=== PATIENT | male | born 1945 | race Caucasian/White ===

== ENCOUNTER 2019-02-22 21:14 | Inpatient (IN) | payer MEDICARE ==
[~2019-02-22 21:14] MED LIST: Iopamidol-370 76% 500 ML 1 ML ONE
[2019-02-22 22:05] LABS: #Eosinphils 0.1 thou/uL (0.0-0.7); #Lymphocytes 1.8 thou/uL (1.20-3.40); #Monocytes 1.5 thou/uL (0.11-0.59); #Neutrophils 9.1 thou/uL (1.40-6.50); %Basophils 0.2 % (0.0-1.0); %Eosinophils 0.8 % (0.0-10.0); %Lymphocytes 14.6 % (21.0-51.0); %Monocytes 12.1 % (0.0-10.0); %Neutrophils 72.3 % (42.0-75.0); Mean Corpuscular HGB CONC 31.7 g/dL (32.0-36.0); Mean Corpuscular Hemoglobin 24.9 pg (27.0-31.0); Mean Corpuscular Volume 78.4 fL (78.0-98.0); Mean Platelet Volume 9.2 fL (7.4-10.4); Platelet Count 353 thou/uL (130-400); RBC Distribution Width 18.1 % (11.5-14.5); Red Blood Cell (RBC) Count 3.23 mill/uL (4.70-6.10); White Blood Cell (WBC) Count 12.6 thou/uL (4.8-10.8)
--- NOTE | 2019-02-22 22:06 | CT ---
CT head noncontrast HISTORY: Head injury. COMPARISON: 08/03/2013. FINDINGS: There is no evidence of acute intracranial hemorrhage or infarct. Old areas of infarct in t he left cerebellum and left frontal lobe. Scattered old lacunar infarcts also evident bilaterally. There is no mass effect or shift of midline structures. Ventricles are unremarkable. Air-fluid level in the right maxillary sinus. Postoperative changes of the left maxillary sinus partially visualized. Scalp injury over the right p arietal calvarium. IMPRESSION: Right parietal scalp swelling. Evidence of prominent chronic ischemic disease and old bilateral infarcts. No acute hemorrhage is brooks arent. Right maxillary sinusitis.
--- NOTE | 2019-02-22 22:09 | RAD ---
Chest one view HISTORY: Cough. Choking. FINDINGS: Cardiac silhouette is magnified by projection. Mild widespread interstitial coarsening. Med iastinum is midline. No confluent airspace consolidation or evidence of pneumothorax. patient monitor leads overlie the chest. IMPRESSION: No active cardiopulmonary abnormalities are demonstrated.
[2019-02-22 22:38] LABS: CKMB 1.9 ng/mL (0-6.6)
[2019-02-22 22:47] LABS: ALT (SGPT) 9 U/L (8-55); AST (SGOT) 17 U/L (5-34); Albumin 3.7 g/dL (3.4-4.8); Alkaline Phosphatase 70 U/L (40-110); Anion Gap 17 mmol/L (10-20); BUN (Urea Nitrogen) 16 mg/dL (8.4-25.7); Bilirubin, Total 0.2 mg/dL (0.2-1.2); Calc. Creatinine Clearance 0 mL/min (70-130); Calcium 8.6 mg/dL (7.8-10.44); Carbon Dioxide 22 mmol/L (23-31); Chloride 92 mmol/L (98-107); Estimated GFR-MDRD 63; Globulin 2.7 g/dL (2.4-3.5); Glucose 87 mg/dL (83-110); Potassium 3.3 mmol/L (3.5-5.1); Protein, Total 6.4 g/dL (5.8-8.1); Sodium 128 mmol/L (136-145)
[2019-02-23] MEDS ORDERED: Aspirin 325 MG TAB ONE (00:03)
[2019-02-23] MEDS ORDERED: levETIRAcetam In NaCl (Iso-Os) 1,000 MG in Premix Bag 1 BAG IVPB SCH (01:45)
[2019-02-23] MEDS ORDERED: Labetalol HCl 100 MG/20 ML VIAL SLOW IVP PRN (01:46)
[2019-02-23] MEDS ORDERED: Acetaminophen 325 MG TAB PO PRN (01:46)
[2019-02-23] MEDS ORDERED: Lorazepam 2 MG/ML VIAL SLOW IVP PRN (01:46)
[2019-02-23] MEDS ORDERED: Ondansetron ODT 4 MG TAB PO PRN (01:46)
[2019-02-23] MEDS ORDERED: PROVENTIL INHALER 6.7 G (200 INHALATIONS) INH PRN (02:00)
--- NOTE | 2019-02-23 02:00 | PDOC.FPRHP ---
- Allergies/Adverse Reactions Allergies Allergy/AdvReac Type Severity Reaction Status Date / Time morphine Allergy Verified 02/23/19 04:32 Penicillins Allergy Verified 02/23/19 04:32 - Home Medications Medication Instructions Recorded Confirmed Type Allopurinol 300 mg PO DAILY 08/01/13 02/23/19 History Amitriptyline HCl [Elavil] 25 mg PO DAILY 08/01/13 02/23/19 History Levothyroxine Sodium [Synthroid] 100 mcg PO DAILY 08/01/13 02/23/19 History Losartan Potassium [Cozaar] 100 mg PO DAILY 08/01/13 02/23/19 History Pregabalin [Lyrica] 150 mg PO TID 08/01/13 02/23/19 History Albuterol Sulfate [Albuterol 2 puff INH Q4H PRN 02/23/19 02/23/19 History Sulfate Hfa] Amlodipine [Norvasc] 5 mg PO HS 02/23/19 02/23/19 History Aspirin [Ecotrin Low Strength] 1 tab PO HS 02/23/19 02/23/19 History Clopidogrel Bisulfate [Clopidogrel] 75 mg PO HS 02/23/19 02/23/19 History Fluticasone Propionate [Flovent 4 spray INH BID 02/23/19 02/23/19 History HFA] Hydrochlorothiazide 50 mg PO DAILY 02/23/19 02/23/19 History PARoxetine HCl 30 mg PO DAILY 02/23/19 02/23/19 History Pantoprazole Sodium 1 tab PO DAILY 02/23/19 02/23/19 History Ranolazine [Ranolazine ER] 1,000 mg PO DAILY 02/23/19 02/23/19 History [place] 1,000 mg PO DAILY 02/23/19 02/23/19 History Umeclidinium Brm/Vilanterol Tr 1 inh IH DAILY 02/23/19 02/23/19 History [Anoro Ellipta] chlordiazePOXIDE HCl [Librium] 10 mg PO Q6HR PRN 02/23/19 02/23/19 History - History PMHx: PSHx: FHx: Social: - Vital signs BP: [] HR: [] RR: [] Tmax: [] Pox: []% on [] Wt: [] FMR H&P: Results - Labs Result Diagrams: 02/23/19 04:04 02/23/19 04:04 Lab results: WBC 12.6 thou/uL (4.8-10.8) H 02/22/19 21:58 Hgb 8.0 g/dL (14.0-18.0) L 02/22/19 21:58 Hct 25.3 % (42.0-52.0) L 02/22/19 21:58 MCV 78.4 fL (78.0-98.0) 02/22/19 21:58 Plt Count 353 thou/uL (130-400) 02/22/19 21:58 Neutrophils % 72.3 % (42.0-75.0) 02/22/19 21:58 Sodium 128 mmol/L (136-145) L 02/22/19 21:58 Potassium 3.3 mmol/L (3.5-5.1) L 02/22/19 21:58 Chloride 92 mmol/L (98-107) L 02/22/19 21:58 Carbon Dioxide 22 mmol/L (23-31) L 02/22/19 21:58 BUN 16 mg/dL (8.4-25.7) 02/22/19 21:58 Creatinine 1.15 mg/dL (0.7-1.3) 02/22/19 21:58 Glucose 87 mg/dL (83-110) 02/22/19 21:58 Calcium 8.6 mg/dL (7.8-10.44) 02/22/19 21:58 Total Bilirubin 0.2 mg/dL (0.2-1.2) 02/22/19 21:58 AST 17 U/L (5-34) 02/22/19 21:58 ALT 9 U/L (8-55) 02/22/19 21:58 Alkaline Phosphatase 70 U/L (40-110) 02/22/19 21:58 CK-MB (CK-2) 1.9 ng/mL (0-6.6) 02/22/19 21:58 Serum Total Protein 6.4 g/dL (5.8-8.1) 02/22/19 21:58 Albumin 3.7 g/dL (3.4-4.8) 02/22/19 21:58 FMR H&P: Upper Level - Plan Date/Time: 02/23/19 0152 PCP: INGRID HPI: This 74 yo M is being admitted after a seizure like episode happened earlier today. Girlfriend states he was sitting in his chair and went stiff and she could not get him to respond. She states this has been occurring 3-4 times a week since Dec 2017 and no one has given them a reason for these occurrences. She states that usually they last 3-4 minutes and then he comes out of it, sometimes he does wet himself. states it often occurs when he is chewing on ice, then he will start gagging, and then get stiff. She also states he has slurred speech which comes and goes. This time he did not come out of it and his lips started turning blue so she called EMS. Paramedics arrived and he was unresponsive so they brought him to the floor and they started bagging him. He came to when they were putting an IO in place. He denies incontinence, tongue/cheek biting with this episode. No weakness on one side or the other. Girlfriend states he has been getting weaker over the last 2 months, he states he is able to walk from the living room to the bathroom but does get tired. 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 ( patient reportedly denied stents) Meds: see above Allergies: morphine Soc Hx: 2 ppd smoker for 60+ years, 1-2 drinks per night, no drugs Fm hx: non-contributory REVIEW OF SYSTEMS: Gen: no fever, chills, or sweats Neuro: see hpi Eyes: no visual changes ENT: no hearing changes, no sore throat, no congestion Resp: does have on/off cough, non-productive Card: denies chest pain, palpitations GI: no N/V/D, no abdominal pain Heme: no easy bruising/bleeding, no blood thinners Skin: no rash, no erythema Vitals: BP 120/51 P75 R 18 T98.4 94% on RA PHYSICAL EXAMINATION: General: NAD, alert and oriented x3 HEENT: PERRLA, EOMI, normal sclera, oropharynx without erythema or exudate Neck: Supple. Full ROM. Heart/Cardiovascular System: RRR, Cap refill < 3 seconds, no rub, no murmur Lungs/Respiratory System: distant breath sounds bilaterally, end expiratory wheeze, pink puffer Abdomen/Gastro-Intestinal System: no abdominal tenderness, normal bowel sounds Extremities: Warm extremities. No cyanosis or edema Neuro: No gross deficits appreciated. No facial droop/slurred speech, no arm drift, sensation intact and equal bilaterally, no leg drift, finger to nose normal Psychiatry: Awake, Alert and cooperative with exam Skin: No lesions, rashes, or ulcers Musculoskeletal: Full ROM A/P: # Seizure episode - Sounds like patient was post-ictal, based on history sounds like this is recurrent - Loading dose of keppra, then bid 500mg - EEG in AM - Consult Neuro in AM - Prolactin, TSH, UDS with AM labs - Alcohol withdrawal possible but seems less likely at this time # TIA r/o - CT head showed chronic ischemic changes - Will check CTA head/neck, HX: 120+ pack year smoker, CAD, CVD - MRI tomorrow - Cont Plavix, start atorvastatin - Check FLP - NPO until ST eval because of gagging episodes - PT/ST, likely deconditioned as well, consider rehab # Microcytic Anemia - GF states people have said he was anemic for years but no diagnosis, colonoscopy normal 5 years ago per patient - FOBT taken, iron studies, b12/folate, retic count, peripheral smear w/ AM labs - Chews on ice often, suspect iron def, unidentified source at this time # COPD - Home meds - O2 to keep sat >88% - AM ABG # Hypokalemia, Hyponatrmia - NS 100ml/hr, replete K - Check Uosm, FEna #SHERRILL - Ask family to bring CPAP tomorrow # HTN, HLD, PVD, Hypothyroidism - Home meds - Fluids: NS 100 ml/hr Code: full PPx: lovenox Dispo: 2-3 days pending neuro eval Addendum - Attending - Attending Attestation Date/Time: 02/23/19 1121 I personally evaluated the patient and discussed the management with Dr. Johnson I agree with the History, Examination, Assessment and Plan documented above with any addition or exceptions noted below. 74 yo male with episode at home tonic clonic activity and alerted consciousness spouse noted cyanosis of lip and questionable apnea. EMS summoned to home with continued unresponsiveness until I/O line attempted for IV access. Patient with fall to concrete 10 days ago with contusion right occipital region. Patient is a heavy drinker states he recently cut back to 3 mixed drinks a day. Patient followed by Midlevel provider in [facility]. Patient also seen by Pulmonary at [facility] for COPD and SHERRILL. Dr [facility] in [place], [place] for CAD Social currently common law x 19 years and 2 female children from first marriage. RX allopurinol 300 qd Amitriptyline 25 qhs amlodipine 5 q pm anoro 62.5/25 inhaler q am ASA 81 q d flovent bid HCTZ 50 q am levothyroxine 100 mcg q am librium 10 mg prn losartan 100 mg q d naprosyn bid pantoprazole 40 mg q am paxil 30 q am proair prn ranolazine 1,000 mg q am rosuvastatin q hs tamsulosin q pm A/P MRI with small subdural to frontoparietal region not seen on CT will consult neurosurgery hold anticoagulants history of seizure like activity further imaging and Neurology consult history prior CVA's CAD HTN Significant alcohol abuse need withdrawal protocol thiamine folate supplement COPD continue current Rx SHERRILL on CPAP may benefit restudy microcytic anemia with low iron store patient denies melena/hematemesis stop NSAID start PPI patient poor historian with last GI w/u
[2019-02-23] MEDS ORDERED: Potassium Chloride 20 MEQ TAB PO SCH ×2 (02:15→05:30)
[2019-02-23 03:11] VITALS: BMI 33.6
[2019-02-23] MEDS: Sodium Chloride 0.9% 1,000 ML IV SCH ×3 (03:39→23:29)
[2019-02-23 04:16] LABS: Reticulocyte Count 2.1 % (0.5-1.5)
[2019-02-23 04:25] LABS: Hemoglobin 7.9 g/dL (14.0-18.0); Hypochromia SLIGHT = 6-15 cells (100X) (0-5/hpf); Lymphocytes 29 % (21-51); MDiff Complete? YES; Mean Corpuscular HGB CONC 30.8 g/dL (32.0-36.0); Mean Corpuscular Hemoglobin 24.3 pg (27.0-31.0); Mean Corpuscular Volume 78.7 fL (78.0-98.0); Mean Platelet Volume 8.4 fL (7.4-10.4); Microcytosis SLIGHT = 6-15 cells (100X) (0-5/hpf); Monocytes 9 % (0-10); Neutrophil 62 % (42-75); Platelet Count 341 thou/uL (130-400); Platelet Morphology Comment Appears Adequate; Red Blood Cell (RBC) Count 3.24 mill/uL (4.70-6.10); White Blood Cell (WBC) Count 8.5 thou/uL (4.8-10.8)
[2019-02-23 04:33] LABS: Iron 8 ug/dL (65-175); Iron Binding Capacity, Total 421 mcg/dL (261-462)
[2019-02-23 04:33] LABS: Creatinine, Urine 41.38 mg/dL (63-166)
[2019-02-23 04:42] LABS: Anion Gap 12 mmol/L (10-20); BUN (Urea Nitrogen) 15 mg/dL (8.4-25.7); CRP (Inflammatory) Less than 0.50 mg/dL (= or < 0.5); Calc. Creatinine Clearance 98 mL/min (70-130); Calcium 8.7 mg/dL (7.8-10.44); Carbon Dioxide 27 mmol/L (23-31); Cardiac Risk 2.1 (Less than 4.5); Chloride 93 mmol/L (98-107); Cholesterol 89 mg/dl (< 200 Desired); Estimated GFR-MDRD 87; Glucose 92 mg/dL (83-110); HDL Cholesterol 43 mg/dL (>60 Neg Risk); LDL Cholesterol, Calculated 29 mg/dL; Magnesium 1.5 mg/dL (1.6-2.6); Sodium 129 mmol/L (136-145); Triglycerides 85 mg/dL (Less than 150)
[2019-02-23 05:05] LABS: CKMB 2.1 ng/mL (0-6.6)
[2019-02-23 05:08] LABS: Ferritin 9.36 ng/mL (22-322); Thyroid Stimulating Hormone 1.7802 uIU/mL (0.35-4.94)
[2019-02-23] MEDS ORDERED: Magnesium Sulfate 3 GM in Sodium Chloride 0.9% 100 ML IVPB SCH (05:30)
[2019-02-23] MEDS: Levothyroxine Sodium 100 MCG TAB PO SCH (06:37)
[2019-02-23] MEDS: Mometasone 100 MCG HFA INHALER INH SCH ×2 (07:03→18:28)
--- NOTE | 2019-02-23 08:33 | MRI ---
EXAM: MRI of the brain without contrast HISTORY: TIA. Fall with head trauma COMPARISON: CT brain 02/22/2019 TECHNIQUE: Multiplanar multisequence MR images were obtained of the brain without IV contrast. FINDINGS: Scattered foci of high T2/FLAIR signal in the subcortical and periventricular white matter are likely secondary to small vessel ischemic disease. No restricted diffusion in the brain parenchyma. No hydronephrosis. There is been interval development of a small amount of blood along the falx and along the right fron doug convexity. This measures 7 mm in greatest thickness. No midline shift or downward herniation is seen. There is loss of the left vertebral artery flow void. The other expected flow voids are present. Corpus callosum, pituitary, and craniocervical junction are within normal limits. A small hematoma seen in the right occipital scalp. There is near complete opacification of the right maxillary sinus. There is fluid in the right mastoi d air cells. IMPRESSION: 1. Small amount of subdural hemorrhage along the right frontal convexity and falx. 2. Possible left vertebral artery occlusion. The patient's nurse was notified of findings at 8:30 AM on 02/23/2019.
[2019-02-23] MEDS ORDERED: Enoxaparin Sodium 40 MG/0.4 ML SYRINGE SC SCH (09:00)
[2019-02-23] MEDS ORDERED: Aspirin 325 mg Enteric Coated Tablet PO SCH (09:00)
[2019-02-23] MEDS ORDERED: Clopidogrel Bisulfate 75 MG TAB PO SCH (09:00)
[2019-02-23] MEDS ORDERED: Lisinopril/Hydrochlorothiazide 10 mg/12.5 mg Tablet PO SCH (09:00)
--- NOTE | 2019-02-23 09:24 | CT ---
INDICATION: Syncope. Multiple transient ischemic attacks. COMPARISON: None. TECHNIQUE: CT angiogram of the head and neck are performed in the axial plane. Three-dimensional reformatted neeta ges are submitted for interpretation. FINDINGS: CTA OF THE HEAD WITH AND WITHOUT CONTRAST: POSTCONTRAST CT OF BRAIN: Pathologic enhancement: No pathologic enhancement the brain. Postcontrast soft tissue neck CT: Sinuses: Right maxillary sinus and right sphenoid sinus disease. Orbits: Bilateral ocular lenses are appropriately located. Both globes are intact. Retrobulbar fat is preserved. Symmetric attenuation the optic nerves and ocular rectus muscles. Salivary glands:Symmetric attenuation of the parotid and symmetrical glands. Thyroid gland: Appropriate attenuation. Lymph nodes: No evidence of lymphadenopathy by size criteria. Paraspinal muscles: Symmetric attenuation of the sternocleidomastoid muscles. Appropriate attenuation of the paraspinal muscles. Cervical spine:Vertebral body height is maintained. No fracture. No significant central canal stenosi s or significant neural foraminal narrowing. Limited evaluation by technique. Upper mediastinum and lung apices: No acute abnormalities. Chronic lung parenchymal changes are suspe cted. CTA OF THE NECK WITH CONTRAST: Aorta: Appropriate enhancement and luminal diameter of the visualized aortic arch. Minimal atheroscle rosis. Right carotid artery: Appropriate enhancement and luminal diameter of the innominate artery origin. T he innominate artery, common carotid artery, carotid bifurcation and internal carotid artery have appropriate enhancement and luminal diameter, based on NASCET criteria. There is atherosclerosis invo lving the right carotid bifurcation and proximal internal carotid artery. Left carotid: Left carotid artery origin has appropriate enhancement and luminal diameter. The left c ommon carotid artery, carotid bifurcation has appropriate enhancement and luminal diameter. There does appear to be a small ulcerative plaque in the proximal left internal carotid artery, measuring 0 .4 cm. There is short segment high-grade stenosis involving the proximal left internal carotid artery with a luminal diameter of 1.5 mm on the sagittal images. There is 73% stenosis. The mid to di stal left internal cardioverter has appropriate enhancement and luminal diameter. Subclavian arteries:Symmetric enhancement and luminal diameter . Vertebral arteries:Dominant right vertebral artery. Bilateral vertebral arteries are patent throughou t the course in the neck CTA OF THE BRAIN: Intracranial internal carotid arteries:Atherosclerosis in both cavernous segments. No evidence of hig h-grade stenosis. Anterior circulation: Symmetric and appropriate attenuation of the A1 and M1 segments, proximal A2 se gments and proximal MCA branches. Intracranial vertebral arteries: Atherosclerosis involving both intracranial vertebral arteries. Ther e appears to be occlusion of the intracranial left vertebral artery. Basilar artery appears to be solely supplied by the right vertebral artery. Posterior circulation: Basilar artery has appropriate enhancement and luminal diameter. Bilateral P1 segments have appropriate enhancement and luminal diameter. IMPRESSION: 1. Short segment high-grade stenosis involving the proximal left internal carotid artery, based upon NASCET criteria. 2. Atherosclerosis with a small ulcerative plaque in the left carotid bifurcation. Consider cardiovas cular surgical consultation. Transcribed Date/Time: 02/23/2019 9:32 AM
[2019-02-23 09:53] LABS: Amphetamine Not Detected (NotDetected); Barbiturates Screen Not Detected (NotDetected); Benzodiazepine Screen Detected (NotDetected); Cocaine Metabolite Screen Not Detected (NotDetected); Medtox Control Line Valid? VALID (VALID); Medtox Reader # READER 4; Methadone Not Detected (NotDetected); Methamphetamine Not Detected (NotDetected); Opiate Screen Not Detected (NotDetected); Oxycodone Screen Not Detected (NotDetected); Phencyclidine (PCP) Not Detected (NotDetected); THC/Cannabinoid Screen Not Detected (NotDetected); Tricyclic Screen Detected (NotDetected)
[2019-02-23] MEDS: Ferrous Sulfate 325 MG TAB PO SCH ×2 (10:12→16:04)
[2019-02-23] MEDS: Amitriptyline HCl 25 MG TAB PO SCH (10:13)
[2019-02-23] MEDS: Famotidine 20 MG TAB PO SCH ×2 (10:13→20:41)
[2019-02-23] MEDS: Nicotine 14 MG PATCH TD SCH (10:13)
[2019-02-23] MEDS: Pregabalin 75 MG CAP PO SCH ×3 (10:13→20:41)
[2019-02-23] MEDS: levETIRAcetam 500 MG TAB PO SCH ×2 (10:13→20:41)
[2019-02-23 10:35] LABS: PTT 30.4 SEC (22.9-36.1); Prothrombin Time 12.8 SEC (12.0-14.7)
[2019-02-23] MEDS ORDERED: Diazepam 5 MG TAB PO PRN (12:13)
[2019-02-23] MEDS ORDERED: Diazepam 5 MG TAB PO SCH (12:15)
[2019-02-23] MEDS ORDERED: Thiamine HCl 200 MG/2 ML VIAL IM SCH (12:15)
[2019-02-23] MEDS ORDERED: Iron, Sodium Ferric Gluconate 250 MG in Sodium Chloride 0.9% 100 ML IVPB SCH (13:45)
[2019-02-23] MEDS ORDERED: Iron Sucrose Complex 200 MG in Sodium Chloride 0.9% 250 ML 250 ML IVPB SCH (13:45)
--- NOTE | 2019-02-23 17:29 | CON ---
DATE OF CONSULTATION: 02/23/2019 CONSULTING PHYSICIAN: Hospitalist Service. IMPRESSION: Probable seizures. PLAN: Continue Keppra 500 mg twice a day. HISTORY OF PRESENT ILLNESS: Mr. Bustos is a 74-year-old gentleman with a past history of gout, hypothyroidism, hypertension, obesity, who presents for evaluation of episodes that he has been having for around 2 years. He has had seizure-like episodes witnessed by family members. At times, he have coughing, sneezing fits that would precede a blackout. He was referred to an EMU and was sent home with a portable EEG for 3 days. They did not catch any episodes. He was never put on any medication for it despite recurrent spells. He got admitted this time after he had an episode, where he fell and hit his head. His MRI of the brain showed no evidence of an acute ischemic event, but he did have a small right subdural hematoma. There was some question of a left vertebral artery occlusion. His lab work was all unremarkable including B12, TSH, prolactin, routine chemistries. Cholesterol ratio was 2.1. His folate was 5.9, which is a bit low. His daughter had some video of some coughing spells, but nothing that captured any convulsive events. The family describes some prolonged generalized convulsions followed by lethargy and nonresponsive, this for up to 10 minutes. He is usually a bit confused after he awakens and takes another 8 to 10 minutes to clear his head. The patient reports that sometimes he can feel these coming on. He was started on Keppra since admission. PAST MEDICAL HISTORY: As listed above. ALLERGIES: MORPHINE, PENICILLIN. SOCIAL HISTORY: No tobacco use. FAMILY HISTORY: Noncontributory. REVIEW OF SYSTEMS: Ten-system review of systems is otherwise negative. PHYSICAL EXAMINATION: VITAL SIGNS: Blood pressure 101/54, pulse 63, respirations 14, and temperature 98.5. HEENT: Pupils are equal and reactive. Conjunctivae are clear. He has round heavy face. NECK: Short. No rigidity. EXTREMITIES: No cyanosis or edema. NEUROLOGIC: He is alert and cooperative. His speech was a little mumbled in character, but otherwise was fluent. There was no facial asymmetry. He had equal movement in the extremities. Sensation was symmetric. No abnormal movements were seen. Gait was not tested. LABORATORY STUDIES: White blood cell count 12.6, hemoglobin 8, and platelet count 253. Coags are in normal range. Chemistry panel as noted was otherwise unremarkable. Toxicology screen was positive for tricyclics and benzodiazepines. SUMMARY: Given the history of the family and the events that have taken place, I suspect that these are epileptic. If it is rather than vagal syncope with seizure activity, I agree with your plan of treatment of Adrianne. I will be happy to follow up with him in the office to monitor his condition. Job ID: [id number]
--- NOTE | 2019-02-23 20:14 | CON ---
DATE OF CONSULTATION: This is Michi Salvador PA-C dictating a report for Da Decker MD. This is a 50-minute initial patient evaluation of which greater than 50% of the exam was spent counseling and coordinating patient's care. Remainder of the exam was spent in review of the patient's medical records and formulation of treatment plan, review of appropriate imaging studies. CHIEF COMPLAINT: Status post coughing episode with chronic right subdural hematoma and chronic parafalcine subdural hematoma. HISTORY OF PRESENT ILLNESS: Mr. Bustos is a 74-year-old male, who presents to [facility] for the above complaints. The patient is a long-term heavy smoker. Apparently, he has been having episodes of significant coughing that has lasted anywhere from five to more than 15 minutes at a time. Apparently, the patient was unable to catch his breath and fell out of his chair yesterday. He is on Plavix and 81 mg aspirin for history of heart issues. The patient sees Cardiology in [place]. There was also concern of possible TIA. The patient has intermittent paresthesias into the right hand and some weakness into the right arm. These began roughly four months ago. There was also concern of some seizure-like activity during his most recent coughing spell. The patient states he does have a strong family history for aneurysm. His mother from aneurysm. Head CT was obtained that apparently showed no acute abnormality. However, an MRI was obtained that showed chronic, likely more than 2 to 3-week-old right subdural hematoma with chronic parafalcine subdural hematoma. There is no mass effect. There is no midline shift. Overall, the patient's brain looks relaxed, although there is some fairly significant cerebral atrophy. PHYSICAL EXAMINATION: The patient is awake, alert, and appropriate. GCS is 15. He follows commands equally in all 4 extremities. He says he has weakness into the right upper extremity, although I cannot appreciate this on exam. He has no nystagmus. Pupils are equal, round, and reactive bilaterally. He is oriented to person, place, and time. Does not have any pronator drift. He is able to correctly identify a pen and define its purpose. He does have some coughing episodes throughout the exam. IMPRESSION/DIAGNOSES: 1. 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 2. History of tobacco abuse with likely chronic obstructive pulmonary disease. 3. Coronary artery disease, on Plavix and 81 mg aspirin. 4. Transient ischemic attack. 5. Questionable seizure episode. PLAN: At this time, I have discussed the patient's case and imaging with Dr. Decker. The patient does not require any type of neurosurgical intervention as these subdural hematomas are old, likely resulted from a reported fall more than a few weeks ago according to the patient's family. We will repeat a head CT in the next 2 to 4 weeks. Given patient's cardiac risk, he is able to be on 81 mg aspirin, however like to hold on his Plavix until he is cleared again by us with repeat imaging in the next 2 to 4 weeks. Please call with any changes in patient's neurologic status. Otherwise, we will intermittently follow the patient. Job ID: [id number]
[2019-02-23] MEDS ORDERED: Atorvastatin Calcium 40 MG TAB PO SCH (21:00)
[2019-02-24] MEDS ORDERED: Diazepam 5 MG TAB PO PRN (04:00)
[2019-02-24 04:52] LABS: #Basophils 0.1 thou/uL (0.0-0.2); #Eosinphils 0.2 thou/uL (0.0-0.7); #Lymphocytes 1.7 thou/uL (1.20-3.40); #Monocytes 1.1 thou/uL (0.11-0.59); %Basophils 0.7 % (0.0-1.0); %Eosinophils 2.3 % (0.0-10.0); %Lymphocytes 20.7 % (21.0-51.0); %Monocytes 13.4 % (0.0-10.0); %Neutrophils 62.9 % (42.0-75.0); Hemoglobin 7.5 g/dL (14.0-18.0); Mean Corpuscular HGB CONC 30.5 g/dL (32.0-36.0); Mean Corpuscular Hemoglobin 24.3 pg (27.0-31.0); Mean Corpuscular Volume 79.9 fL (78.0-98.0); Mean Platelet Volume 8.5 fL (7.4-10.4); Platelet Count 335 thou/uL (130-400); RBC Distribution Width 17.7 % (11.5-14.5); Red Blood Cell (RBC) Count 3.08 mill/uL (4.70-6.10)
[2019-02-24 05:08] LABS: Anion Gap 9 mmol/L (10-20); BUN (Urea Nitrogen) 12 mg/dL (8.4-25.7); Calc. Creatinine Clearance 124 mL/min (70-130); Calcium 7.8 mg/dL (7.8-10.44); Carbon Dioxide 27 mmol/L (23-31); Chloride 98 mmol/L (98-107); Estimated GFR-MDRD Greater than 90; Glucose 77 mg/dL (83-110); Potassium 3.6 mmol/L (3.5-5.1); Sodium 130 mmol/L (136-145)
--- NOTE | 2019-02-24 05:30 | PDOC.FM ---
- Subjective Subjective: Pt had 6 episodes of seizure activity yesterday, non captured by EEG. Pt was seen by neurology and neurosurgery. Pt continually expresses wishes to return home, however, family members are resistant. Pt denies any complaints this morning aside from being tired. Family state that pt's mentation and cognition is at his baseline. - Objective Vital Signs & Weight: Vital Signs (12 hours) Temp Pulse Resp BP BP Pulse Ox 02/24/19 05:00 109/52 L 02/24/19 04:00 98.6 F 59 L 16 109/52 L 92 L 02/24/19 00:25 63 16 95 02/23/19 21:19 110/53 L 02/23/19 20:00 97.3 F L 56 L 18 110/53 L 95 02/23/19 18:27 60 16 96 Weight Weight 88.949 kg I&O: 02/22/19 02/23/19 02/24/19 06:59 06:59 06:59 Intake Total 1500 Output Total 1825 Balance -325 Result Diagrams: 02/24/19 04:33 02/24/19 04:33 Phys Exam - Physical Examination Constitutional: NAD HEENT: moist MMs, sclera anicteric Neck: full ROM Coarse breath sounds, non diminished Cardiovascular: RRR, no significant murmur Gastrointestinal: soft, non-tender Musculoskeletal: no edema, pulses present Neurological: moves all 4 limbs Psychiatric: normal affect, A&O x 3 Skin: no rash, cap refill <2 seconds Dx/Plan (1) Subdural hemorrhage Code(s): I62.00 - NONTRAUMATIC SUBDURAL HEMORRHAGE, UNSPECIFIED Status: Acute (2) Epileptic seizure Code(s): G40.909 - EPILEPSY, UNSP, NOT INTRACTABLE, WITHOUT STATUS EPILEPTICUS Status: Acute (3) Microcytic anemia Code(s): D50.9 - IRON DEFICIENCY ANEMIA, UNSPECIFIED Status: Acute (4) Hyponatremia Code(s): E87.1 - HYPO-OSMOLALITY AND HYPONATREMIA Status: Acute (5) Hypokalemia Code(s): E87.6 - HYPOKALEMIA Status: Acute (6) Alcohol abuse Code(s): F10.10 - ALCOHOL ABUSE, UNCOMPLICATED Status: Acute (7) Tobacco abuse Code(s): Z72.0 - TOBACCO USE Status: Acute - Plan Plan: Epileptic Seizure - Neurology, Dr. Scott, saw pt and feels these episodes are related to epileptic seizures - Continue BID Keppra, F/U as an outpt Subdural Hemorrhage - Neurosurgery consulted, Dr. Decker, feels no neurosurgical intervention is warranted at this time - Continue aspirin and hold plavix - F/U in 2-4 weeks for repeat head CT TIA r/o - ASA and atorvastatin - CT head showing multifocal chronic ischemic changes - MRI - possible left vertebral artery occlusion, chronic small vessel ischemic changes - CTA head and neck - left internal carotid stenosis and plaque at left common carotid bifurcation - Will get recommendations from CV surg today Chronic Alcoholism - ASE Protocol initiated - Vitamin replacement Microcytic Anemia - Appears to be 2/2 iron deficiency anemia - + FOBT, however, no clinical hx suggestive of GI bleed - Ferrous sulfate BID, iron infusion yesterday COPD - Home meds - O2 to keep sat >88% Hypokalemia, Hyponatrmia - NS 100ml/hr, replete K SHERRILL - Home CPAP HTN, HLD, PVD, Hypothyroidism - Home meds Fluids: NS 100 ml/hr Code: full PPx: SCD Dispo: 1-2 days pending CV surg recommendations and monitoring for seizure activity. Addendum - Attending - Attending Attestation Date/Time: 02/24/19 [id number] I personally evaluated the patient and discussed the management with Dr. White I agree with the History, Examination, Assessment and Plan documented above with any addition or exceptions noted below. appreciate recommendations from Neurology, Neurosurgery and Cardiovascular surgery. Candid discussion of continued tobacco and alcohol abuse and health implication to continued use. We discussed his barriers to quitting. Patient to be discharged today with need f/u CT 2-4 weeks neurosurgery , RX keppra and neurology f/u HE was advised no driving ,operation of machinery climbing or swimming till cleared by Neurology.Will need repeat Int Carotid artery evaluation and f/u 6 months he has no hemispheric symptoms. Discussed goals of care discharge meds with patient and attentive family.
[2019-02-24] MEDS: Levothyroxine Sodium 100 MCG TAB PO SCH (06:01)
[2019-02-24] MEDS: Mometasone 100 MCG HFA INHALER INH SCH (07:05)
[2019-02-24] MEDS: Ferrous Sulfate 325 MG TAB PO SCH (08:44)
[2019-02-24] MEDS: Pregabalin 75 MG CAP PO SCH (08:44)
[2019-02-24] MEDS: levETIRAcetam 500 MG TAB PO SCH (08:45)
[2019-02-24] MEDS: Amitriptyline HCl 25 MG TAB PO SCH (08:45)
[2019-02-24] MEDS: Nicotine 14 MG PATCH TD SCH (08:45)
[2019-02-24] MEDS: Famotidine 20 MG TAB PO SCH (08:45)
[2019-02-24] MEDS ORDERED: Prevnar 13-Val Conj/PF 0.5 ML SYRINGE IM ONE (09:00)
[2019-02-24] MEDS ORDERED: Multivitamin W/ Minerals 1 TAB PO SCH (09:00)
[2019-02-24] MEDS ORDERED: Cyanocobalamin (Vitamin B-12) 1,000 MCG TAB PO SCH (09:00)
[2019-02-24] MEDS ORDERED: Folic Acid/Vit B Comp W-C PO SCH (09:00)
[2019-02-24] MEDS ORDERED: Thiamine 100 MG TAB PO SCH (09:00)
[2019-02-24] MEDS ORDERED: Folic Acid 1 MG TAB PO SCH (09:00)
[2019-02-24] MEDS ORDERED: Magnesium Oxide 400 MG TAB PO SCH (09:00)
[2019-02-24] MEDS ORDERED: Aspirin 81 mg Enteric Coated Tablet PO SCH (09:00)
--- NOTE | 2019-02-24 10:23 | PRG ---
DATE OF SERVICE: 02/24/2019 This is a 30-minute initial visit note, in which 30 minutes were spent reviewing the imaging record, evaluation, examination of the patient, and formulation of plan. Greater than 50% time was spent in counseling on Rell Bustos. Mr. Bustos is a 74-year-old male with severe COPD. He had a coughing spell. The family thinks that this is a seizure, although perhaps, it was bronchospasm related to his severe coughing spells. Nevertheless, he is on aspirin and Plavix for ischemic vasculopathy. He was found to have internal carotid stenosis, and there was concern of a TIA. MRI demonstrates no evidence of diffusion restriction consistent with a stroke; however, he does have a small right convexity chronic subdural hematoma and also along the falx. He is neurologically intact with slight confusion. I have let the family know, and we have let the Medical Team know that I would like to do just aspirin for his carotid disease. This will help reduce his risk of stroke. We will hold his Plavix for the next 2 to 4 weeks until we have a repeat head CT demonstrates stability in this hematoma. Whether or not he is a candidate for carotid endarterectomy obviously, I would defer to my vascular colleagues. DIAGNOSIS: Chronic subdural hematoma with fall 2 weeks ago. Job ID: [id number]
[2019-02-24] MEDS: Sodium Chloride 0.9% 1,000 ML IV SCH (10:57)
[2019-02-24 11:48] VITALS: BP 113/55; TEMP 98.1
--- NOTE | 2019-02-24 12:12 | CON ---
DATE OF CONSULTATION: 02/24/2019 REASON FOR CONSULTATION: Evaluate the patient with left carotid stenosis and subdural hematoma after a fall 2 weeks ago and a near respiratory arrest with seizure-like activity. HISTORY OF PRESENT ILLNESS: Mr. Bustos is a 74-year-old gentleman who has had chronic spells, where he will turn blue and become rigid. He had a spell on the , which lasted longer and he stopped breathing. EMS was called. They bagged him and brought into the emergency department. He is found to have a chronic subdural and has been evaluated by Neurosurgery, who is conservatively managing him at this point. Part of his workup included a CT angio of the neck, which shows bilateral carotid bulb and proximal internal carotid artery calcification. There is a stenosis in the carotid little more distal on the left. He is asymptomatic from his carotid disease. He has been on aspirin and Plavix due to coronary artery disease. I have been asked to see him for recommendations on his carotids. PAST MEDICAL HISTORY: 1. ? seizures versus other spells. He has been started on Keppra. 2. Chronic subdural hematoma. 3. Left carotid stenosis. 4. Coronary artery disease. 5. Hypertension. 6. Dyslipidemia. 7. COPD. 8. Chronic anemia. 9. Sleep apnea. 10. Peripheral vascular disease. 11. Hypothyroidism. 12. Tobacco abuse. CURRENT MEDICATIONS: Noted. ALLERGIES: PENICILLIN AND MORPHINE. REVIEW OF SYSTEMS: Not performed as the patient is a very poor historian. PHYSICAL EXAMINATION: GENERAL: This is an obese gentleman, resting comfortably after his shower. VITAL SIGNS: Height is 5 feet and 4 inches, weight is 200 pounds. Temperature is 97.4, pulse is 76 and regular, and blood pressure is 138/62. HEENT: Sclerae are nonicteric. NECK: He has a very thick neck. I cannot auscultate bruits. CHEST: Has diminished breath sounds with wheezes bilaterally. CARDIAC: Heart rhythm is regular. ABDOMEN: Protuberant, soft, nontender. There is no palpable mass. EXTREMITIES: No edema. DIAGNOSTIC DATA: I reviewed his scans. ASSESSMENT AND PLAN: I would treat this gentleman conservatively as he is asymptomatic from his carotid disease. He has a very thick neck and accessing the upper internal carotid artery will be difficult. He may be a candidate for a carotid stent in the future, but we will have to further evaluate him as an outpatient. I will see him back in the office, get a carotid ultrasound - his CT may be overestimating the degree of stenosis due to the thickness of his neck. I will arrange for followup and ultrasound in the office as an outpatient. Job ID: [id number]
--- NOTE | 2019-02-25 02:21 | DIS ---
DATE OF ADMISSION: 02/23/2019 DATE OF DISCHARGE: 02/24/2019 ADMITTING ATTENDING: Daniele Moreira MD DISCHARGE ATTENDING: Steve Bhatt MD RESIDENT: Kenneth White DO CONSULTS: 1. Cardiovascular Surgery, Pablo Lisa MD. 2. Neurosurgery, Da Decker MD. 3. Neurology, Angel Scott MD. PROCEDURES PERFORMED: None. IMAGING: Brain CT without contrast. Findings: Right parietal scalp swelling. Evidence of chronic ischemic disease and old bilateral infarcts within no acute hemorrhage. Chest x-ray. Findings: No active cardiopulmonary abnormalities demonstrated. CTA head and neck with and without findings, short-segment high-grade stenosis involving the proximal left internal carotid artery and atherosclerosis with small ulcerative plaque in the left carotid bifurcation. Consider cardiovascular surgical consult. Brain MRI without contrast. Findings: Small amount of subdural hemorrhage along the right frontal convexity and falx. Possible left vertebral artery occlusion. PRIMARY DIAGNOSES: Epileptic seizures, transient ischemic attack-chronic cerebral ischemia, carotid stenosis, subdural hemorrhage . SECONDARY DIAGNOSES: Alcoholism-alcohol abuse, tobacco abuse, microcytic anemia. DISCHARGE MEDICATIONS: 1. Lyrica 150 mg t.i.d. 2. Losartan 100 mg daily. 3. Allopurinol 300 mg daily. 4. Levothyroxine 100 mcg daily. 5. Ranolazine extended release 1000 mg daily. 6. Albuterol HFA two puffs q.4 hours p.r.n. 7. Paroxetine 30 mg daily. 8. Librium 10 mg p.o. q.6 hours p.r.n. 9. Hydrochlorothiazide 50 mg daily. 10. Flovent HFA four sprays inhalation b.i.d. 11. Anoro Ellipta one inhalation daily. 12. Norvasc 5 mg at bedtime. 13. Pantoprazole 40 mg daily. 14. Ecotrin 81 mg at bedtime. 15. Lipitor 40 mg at bedtime. 16. Ferrous sulfate 325 mg b.i.d. 17. Keppra 500 mg b.i.d. 18. Multivitamin with minerals one tab daily. 19. Thiamine 100 mg daily. 20. Nicotine patch 21 mg patch daily. DISCONTINUED MEDICATIONS: 1. Saw [place] 1000 mg daily. 2. Plavix 75 mg daily. 3. Amitriptyline 25 mg daily. HISTORY OF PRESENT ILLNESS AND HOSPITAL COURSE: The patient is a 74-year-old male, who was admitted following seizure-like activity happening earlier in the day. The patient's family stated that the patient was sitting in chair and went stiff and unresponsive. EMS was called and patient was found to be hypoxic and received bag ventilation. Upon arrival to the emergency department, the patient was in normal mental status per family and acting normal. The patient's family and patient state that over the last two years, the patient has been having these episodes where he becomes stiff and holds his breath and face becomes purple. He states that these episodes normally lasts 20 to 30 seconds. However, today, it lasted several minutes. The patient has had a workup for this by a number of doctors previously, but they have not gotten any answers. The patient also had a portable EEG study that did not have any significant findings and family notes the patient did not have an episode like this while he was using it. The patient was subsequently loaded with Keppra and started on b.i.d. dosing and was admitted to the stroke floor. Neuroimaging demonstrated chronic ischemic vessel changes and old infarcts, as well as mild left carotid atherosclerotic disease as well as small subdural hemorrhage. Neurosurgery was consulted and felt the hemorrhage did not require surgical intervention at this time. They recommended continuing the patient's aspirin while holding Plavix and having the patient followup within 2 to 4 weeks for repeat of head CT. Neurology, Dr. Scott, was consulted and EEG was performed. Dr. Scott felt that the patient's symptoms were likely related to epileptic seizures. Recommended continuing the Keppra and following up with him as an outpatient for monitoring of his seizure activity. Cardiovascular Surgery was consulted due to the patient's carotid atherosclerosis. They recommended treating the patient medically for now and having him follow up with them as an outpatient for carotid ultrasound and possible stenting in the future if needed. The patient was found to have a microcytic anemia and was started on oral replacement and received a single infusion of iron. During the patient's stay, the patient had a few more episodes that were similar to those previously described, where the patient would hold his breath for approximately 20 seconds and then experience about a 5-minute postictal. The patient's medications were medically optimized, amitriptyline was discontinued due to risk of lowering the seizure threshold, Plavix was held due to subdural hemorrhage. Prior to discharge, the patient and family were instructed on lifestyle changes that could improve patient's long-term mortality including smoking and alcohol cessation. The patient was recommended to continue his Librium treatment and was prescribed nicotine patches to help with cessation. The patient and family were also instructed on seizure precautions including abstaining from driving, climbing or swimming until the patient has been seizure-free for at least 6 months and evaluated by a medical provider before being released for these activities. They expressed understanding prior to discharge. DISCHARGE INSTRUCTIONS: 1. Location: Home. 2. Diet: Heart healthy. 3. Activity: Restrictions as above. 4. Followup: SANTIAGO Wong within 7 days. Cardiovascular Surgery, Dr. Lisa, within the next 6 months. Neurosurgery, Dr. Decker, 2 to 4 weeks. Neurology, Dr. Scott, 2 to 4 weeks. Job ID: [id number] MTDD
--- NOTE | 2019-02-25 12:00 | EKG ---
Test Reason : Blood Pressure : / mmHG Vent. Rate : 069 BPM Atrial Rate : 069 BPM P-R Int : 188 ms QRS Dur : 102 ms QT Int : 446 ms P-R-T Axes : 074 029 094 degrees QTc Int : 477 ms Sinus rhythm with Premature atrial complexes Nonspecific T wave abnormality Abnormal ECG Confirmed by ARLYN BEYER, MURIEL ([id number]), book or script editor YASMINE PACHECO ([id number]) on 02/25/2019 11:59:59 AM Referred By: Confirmed By:MURIEL STODDARD MD
== END 2019-02-24 13:26 | disposition home or self-care (01) | DRG 100 ==
LOC: ERS 21:14 → 2SE 02-23 00:29 → OBSVTOIN 02-23 23:07
PROVIDERS: ADMIT Family Medicine; ATTEND Family Medicine
DX: G40.901 Epilepsy, unspecified, not intractable, with status epilepticus (principal); S06.5X0A Traumatic subdural hemorrhage without loss of consciousness, initial encounter; G45.9 Transient cerebral ischemic attack, unspecified; E87.1 Hypo-osmolality and hyponatremia; F10.10 Alcohol abuse, uncomplicated; F17.200 Nicotine dependence, unspecified, uncomplicated; D50.9 Iron deficiency anemia, unspecified; J44.9 Chronic obstructive pulmonary disease, unspecified; I25.10 Atherosclerotic heart disease of native coronary artery without angina pectoris; G47.33 Obstructive sleep apnea (adult) (pediatric); E03.9 Hypothyroidism, unspecified; I73.9 Peripheral vascular disease, unspecified; R29.701 NIHSS score 1; E78.5 Hyperlipidemia, unspecified; W18.30XA Fall on same level, unspecified, initial encounter; E87.6 Hypokalemia; Z88.5 Allergy status to narcotic agent; Z88.0 Allergy status to penicillin; Y93.89 Activity, other specified; Y92.89 Other specified places as the place of occurrence of the external cause; Z98.890 Other specified postprocedural states
CPT/HCPCS: 36415; 70450; 70496; 70498; 70551; 71045; 80048; 80053; 80061; 80306; 82140; 82274; 82553; 82570; 82607; 82728; 82746; 83540; 83550; 83735; 83935; 84146; 84300; 84443; 84484; 85007; 85025; 85027; 85046; 85060; 85610; 85652; 85730; 86140; 93005; 94640; 95816; 95819; J1953; J2916; J3411; J3475; J3490; J7620; Q9967

== ENCOUNTER 2019-03-15 10:00 | Outpatient (CLI) | payer MEDICARE ==
--- NOTE | 2019-03-17 08:55 | RAD ---
Modified barium swallow HISTORY: Dysphagia following intracerebral hemorrhage. Fluoroscopy time 19 seconds. FINDINGS: Exam was performed by speech pathology with multiple consistencies. Video review is availab le and demonstrates good bolus formation and retropulsion. Good initiation of swallowing. Moderate penetration early in the exam with thin barium liquids. Mild pooling within the valleculae with good clearance upon secondary swallowing. No aspiration evident. The esophagus below the level of the hypopharynx was not evaluated. Please see separate detailed repo rt from speech pathology.
== END 2019-03-15 10:01 | disposition home or self-care (01) ==
PROVIDERS: ATTEND Otolaryngology Plastic Surgery within the Head & Neck
DX: I69.891 Dysphagia following other cerebrovascular disease (principal)
CPT/HCPCS: 74230

== ENCOUNTER 2019-03-20 13:27 | Outpatient (CLI) | payer MEDICARE ==
--- NOTE | 2019-03-20 14:29 | CT ---
CT HEAD WITHOUT CONTRAST: Date: 03/30/2019 INDICATION: Subdural hematoma follow-up. Correlation made to MRI of brain dated 02/23/2019. That exam revealed a small subdural in the right f rontal convexity and right falx. Correlation also made to CT of 02/22/2019 which did not demonstrate this subdural. FINDINGS: Evidence of old left cerebellar infarct again noted. Evidence of old infarct in the left frontal lobe is again seen and appears stable. Ventricles have normal size and position. Chronic ischemic white matter changes and old lacunar infar cts in the deep white matter and basal ganglia regions again noted. Old infarcts in both caudate head s again noted. No evidence of subdural hematoma identified on today's exam. The previously noted right frontal lobe subdural is no longer apparent. There is no intraparenchymal hemorrhage or mass. IMPRESSION: 1. No evidence of subdural hematoma seen on today's study. The chronic brain changes remain stable. POS: [facility]
== END 2019-03-20 13:28 | disposition home or self-care (01) ==
LOC: TBSIIMAG 13:27
PROVIDERS: ATTEND Surgery
DX: I62.03 Nontraumatic chronic subdural hemorrhage (principal)
CPT/HCPCS: 70450

== ENCOUNTER 2019-04-14 11:48 | Inpatient (IN) | payer MEDICARE ==
[2019-04-14] MEDS ORDERED: Magnesium 2 GM/50 ML BAG (IN WATER) ONE (12:18)
[2019-04-14] MEDS ORDERED: methylPREDNISolone Sod Succ/PF 125 MG/2 ML VIAL ONE (12:18)
[2019-04-14 12:26] LABS: Actual Bicarbonate (HCO3a) 33.9 mEq/L (22-28); Analyzer IN Cardio ER; Base Excess (BEa) 8.3 mEq/L (-2.0 to +3.0); CO2 Tension 49.9 mmHg (35.0-45.0); Calcium, Ionized 1.14 mmol/L (1.12-1.30); Carboxyhemoglobin (COHb) 6.6 gm% (0.0-3.0); Hemoglobin (Hb) 15.9 g/dL (14.0-18.0); Potassium - ABG Lab 3.14 mmol/L (3.70-5.30); pH, Arterial 7.45 (7.35-7.45)
[2019-04-14 12:28] LABS: ALV-art Gradient 37.855 (0-20); O2 Tension (PaO2) 49.5 mmHg (> 70.0); Puncture Site RRA
[2019-04-14 12:29] LABS: Hemoglobin 16.4 g/dL (14.0-18.0); Mean Corpuscular HGB CONC 33.1 g/dL (32.0-36.0); Mean Corpuscular Hemoglobin 33.6 pg (27.0-31.0); Mean Platelet Volume 8.3 fL (7.4-10.4); Platelet Count 282 thou/uL (130-400); Red Blood Cell (RBC) Count 4.89 mill/uL (4.70-6.10); White Blood Cell (WBC) Count 10.7 thou/uL (4.8-10.8)
--- NOTE | 2019-04-14 12:45 | RAD ---
SINGLE VIEW OF THE CHEST: COMPARISON: 02/22/2019. HISTORY: Low oxygen saturation and decreased sodium. Dyspnea. FINDINGS: Single view of the chest shows a normal sized cardiomediastinal silhouette. There is no evidence of c onsolidation, mass, or pleural effusion. The bones are unremarkable. IMPRESSION: No evidence of acute cardiopulmonary disease. POS: [facility]
[2019-04-14 12:49] LABS: ALT (SGPT) 21 U/L (8-55); AST (SGOT) 25 U/L (5-34); Albumin 4.3 g/dL (3.4-4.8); Alkaline Phosphatase 106 U/L (40-110); Anion Gap 16 mmol/L (10-20); Anisocytosis MODERATE=16-30 cells (100X) (0-5/hpf); BUN (Urea Nitrogen) 10 mg/dL (8.4-25.7); Band 8 % (5-11); Bilirubin, Total 0.4 mg/dL (0.2-1.2); Calc. Creatinine Clearance 0 mL/min (70-130); Calcium 9.8 mg/dL (7.8-10.44); Carbon Dioxide 33 mmol/L (23-31); Chloride 83 mmol/L (98-107); Estimated GFR-MDRD Greater than 90; Globulin 2.7 g/dL (2.4-3.5); Glucose 106 mg/dL (83-110); MDiff Complete? YES; Macrocytosis SLIGHT = 6-15 cells (100X) (0-5/hpf); Monocytes 5 % (0-10); Neutrophil 85 % (42-75); Ovalocytes SLIGHT = 2-5 cells (100X) (0-1/hpf); Platelet Morphology Comment Appears Adequate; Potassium 3.7 mmol/L (3.5-5.1); Reactive Lymphocytes 2 % (0-10); Sodium 128 mmol/L (136-145); Target Cells SLIGHT = 2-5 cells (100X) (0-1/hpf)
--- NOTE | 2019-04-14 13:05 | CT ---
CT Brain WO Con HISTORY: Head injury. COMPARISON: 03/20/2019 FINDINGS: Old infarctions in the left cerebellar hemisphere, left frontal lobe and both caudate heads are agai n seen. Changes of chronic small vessel ischemic disease are redemonstrated. The ventricular size is stable and the basilar cisterns are patent. No evidence of acute infarct, hemorrhage, midline shift or abnormal extra-axial fluid collections is seen. The bony calvarium is intact. There is mucosal disease in the paranasal sinuses. IMPRESSION: Stable exam. No CT evidence of acute intracranial process.
--- NOTE | 2019-04-14 13:14 | CT ---
CT CERVICAL SPINE WITH CORONAL AND SAGITTAL REFORMATIONS AND NO IV CONTRAST: HISTORY: Injury, neck pain FINDINGS: Multilevel degenerative changes are present. No fracture, subluxation or facet malalignment is identified. No prevertebral soft tissue swelling is apparent. The visualized lung apices are unremarkable. IMPRESSION: No CT evidence for fracture or traumatic subluxation.
[2019-04-14] MEDS ORDERED: Ondansetron ODT 4 MG TAB SL PRN (17:21)
[2019-04-14] MEDS ORDERED: Ondansetron PF 4 MG/2 ML Vial IVP PRN (17:21)
[2019-04-14] MEDS ORDERED: Calcium Carbonate 500 MG ChewTAB PO PRN (19:40)
[2019-04-14] MEDS ORDERED: Acetaminophen 325 MG TAB PO PRN (19:40)
[2019-04-14] MEDS ORDERED: Ondansetron ODT 4 MG TAB PO PRN (19:40)
--- NOTE | 2019-04-14 20:01 | HP ---
PRIMARY CARE PHYSICIAN: At [place]. CHIEF COMPLAINT: Shortness of breath. HISTORY OF PRESENT ILLNESS: The patient is a 74-year-old male with obstructive sleep apnea, on CPAP and COPD, presented to the hospital with above complaints. He was evaluated by his primary care physician and was advised to go to the emergency room due to low oxygen saturation. He was also told that his sodium was low. Over the last 2 to 3 weeks, the patient has been getting short of breath on [id number] exertion. His symptoms got worse over the last 2 to 3 days. He has continuous coughing spells without any precipitating factor. Yesterday, he had a syncopal episode while coughing and had an injury to his head. He denies any loss of consciousness. He denies any fever or chills. He is compliant with CPAP at night. No sick contacts. He denies any orthopnea or worsening lower extremity swelling. In the emergency room, his O2 sats were 82% on room air with temperature of 97.5, respirations of 25, pulse rate of 61, blood pressure of 120/65. His ABG showed pH of 7.45 with bicarbonate of 34. He received magnesium along with steroids and DuoNebs in the emergency room. Per ER report, he had moderate respiratory distress and was tripod positioning. He also has intermittent yellowish colored sputum. The patient was evaluated by primary care physician 5 days ago and was started on Levaquin and prednisone along with Lasix. PAST MEDICAL HISTORY: 1. COPD. 2. Obstructive sleep apnea, on CPAP. 3. Seizure disorder. 4. History of TIA. 5. Hypertension. 6. Hyperlipidemia. 7. Hypothyroidism. 8. Peripheral vascular disease. 9. Coronary artery disease, followed by a automation controls specialist at [place]. 10. Chronic alcoholism. 11. Tobacco dependence. 12. History of subdural hematoma in February of this year, managed conservatively. 13. Carotid stenosis. PAST SURGICAL HISTORY: 1. Left hand surgery. 2. Facial reconstructive surgery. 3. Sinus surgery. ALLERGIES: THE PATIENT IS ALLERGIC TO MORPHINE AND PENICILLIN. SOCIAL HISTORY: The patient smokes one pack on a daily basis. He drinks 6 to 8 ounces of liquor on a daily basis. His primary decision maker is the spouse, Marcie. He is full code. FAMILY HISTORY: Negative for premature coronary artery disease. REVIEW OF SYSTEMS: All other review of systems were reviewed and were found negative. PHYSICAL EXAMINATION: GENERAL: A 74-year-old male, in [id number] respiratory distress, able to complete short phrases. HEENT: Head, atraumatic and normocephalic. Sclerae anicteric. Moist mucous membranes. No oral lesion. NECK: Supple. No JVD appreciated. No carotid bruit. LUNGS: Showed diffuse expiratory wheezing with rhonchi. No significant rales. There was mild accessory muscle use. HEART: S1 and S2 present. Regular rate and rhythm. No rubs or gallops. There is 2/6 systolic murmur over the mitral area. ABDOMEN: Soft, nontender, obese. Bowel sounds present. No rebound or guarding. EXTREMITIES: 1+ edema in bilateral lower extremity. No calf tenderness. SKIN: Warm and dry. LYMPH NODES: No palpable lymph nodes in the neck. PERIPHERAL VASCULAR: Radial pulses palpable bilaterally. MUSCULOSKELETAL: No joint swelling tenderness. NEUROLOGICAL: Grossly nonfocal. LABORATORY FINDINGS: CBC showed WBC of 10.7 with hemoglobin 16.4, hematocrit 49.6, platelets 282. ABGs showed pH 7.45 with pCO2 49.9, pO2 49.5 with O2 sats of 86.8. Sodium of 128. Please note that his sodium in February was between 128 and 130. BNP was 64.1. Troponin 0.010. EKG by my review showed sinus rhythm with sinus arrhythmia. Chest x-ray by my review was negative for infiltrate or edema. CT scan of the brain was negative for acute findings. Cervical spine CT was negative for acute fractures or dislocation. IMPRESSION: 1. Acute hypoxic and hypercapnic respiratory failure secondary to chronic obstructive pulmonary disease exacerbation. 2. Acute on chronic hyponatremia. 3. Ongoing tobacco abuse. 4. Chronic alcoholism. 5. Obstructive sleep apnea, on CPAP. 6. Hypertension. 7. Hyperlipidemia. 8. Hypothyroidism. 9. Peripheral vascular disease. 10. Chronic subdural hematoma. 11. Seizure disorder. 12. Coronary artery disease. 13. Carotid artery disease. 14. Gout. 15. Cough-induced syncope causing fall and blunt head injury. 16. Obesity with a BMI of 32.2. PLAN: The patient will be monitored on the telemetry unit. We will start him on IV steroids, oxygen, nebulizer treatment. Echocardiogram will be obtained to rule out congestive heart failure. His BNP was 64.1. We will check serum and urine osmolality. We will check folic acid and vitamin B12 due to macrocytosis. Serial troponins will be obtained. Resume home CPAP. We will start home medications. The plan was discussed with the patient and the family at the bedside. They stated understanding. Job ID: [id number]
[2019-04-14] MEDS ORDERED: Nitroglycerin 0.4 MG TAB (25 Tab Bottle) PO PRN (20:15)
[2019-04-14] MEDS ORDERED: Amlodipine 5 MG TAB PO SCH (21:00)
[2019-04-14] MEDS ORDERED: Thiamine 100 MG TAB PO SCH (21:00)
[2019-04-14] MEDS ORDERED: Tamsulosin HCl 0.4 MG CAP PO SCH (21:00)
[2019-04-14] MEDS ORDERED: Atorvastatin Calcium 40 MG TAB PO SCH (21:00)
[2019-04-14] MEDS: Nicotine 14 MG PATCH TD SCH (21:06)
[2019-04-14] MEDS: guaiFENesin ER 600 MG TAB PO SCH (21:07)
[2019-04-14] MEDS: levETIRAcetam 500 MG TAB PO SCH (21:08)
[2019-04-14] MEDS: Pregabalin 50 MG CAP PO SCH (21:08)
[2019-04-14] MEDS: Folic Acid 1 MG TAB PO SCH (21:08)
[2019-04-14] MEDS: Senokot S 8.6-50 MG TAB PO SCH (21:08)
[2019-04-15] MEDS: methylPREDNISolone Sod Succ 40 MG VIAL IVP SCH ×5 (00:12→22:01)
[2019-04-15 05:31] LABS: ALT (SGPT) 16 U/L (8-55); AST (SGOT) 15 U/L (5-34); Albumin 3.7 g/dL (3.4-4.8); Alkaline Phosphatase 82 U/L (40-110); Anion Gap 13 mmol/L (10-20); BUN (Urea Nitrogen) 10 mg/dL (8.4-25.7); Bilirubin, Total 0.3 mg/dL (0.2-1.2); Calc. Creatinine Clearance 120 mL/min (70-130); Calcium 9.2 mg/dL (7.8-10.44); Carbon Dioxide 33 mmol/L (23-31); Chloride 85 mmol/L (98-107); Estimated GFR-MDRD Greater than 90; Globulin 2.7 g/dL (2.4-3.5); Glucose 129 mg/dL (83-110); Protein, Total 6.4 g/dL (5.8-8.1); Sodium 128 mmol/L (136-145)
[2019-04-15 05:35] LABS: Troponin I 0.011 ng/mL (< 0.028)
[2019-04-15 05:36] LABS: #Lymphocytes 0.4 thou/uL (1.20-3.40); #Monocytes 0.3 thou/uL (0.11-0.59); #Neutrophils 4.8 thou/uL (1.40-6.50); %Basophils 0.4 % (0.0-1.0); %Eosinophils 0.2 % (0.0-10.0); %Lymphocytes 7.6 % (21.0-51.0); %Neutrophils 86.8 % (42.0-75.0); Band 4 % (5-11); Elliptocytes SLIGHT = 2-5 cells (100X) (0-1/hpf); Hemoglobin 14.6 g/dL (14.0-18.0); Hypochromia SLIGHT = 6-15 cells (100X) (0-5/hpf); Lymphocytes 7 % (21-51); MDiff Complete? YES; Macrocytosis SLIGHT = 6-15 cells (100X) (0-5/hpf); Mean Corpuscular HGB CONC 33.1 g/dL (32.0-36.0); Mean Corpuscular Hemoglobin 33.3 pg (27.0-31.0); Mean Platelet Volume 8.3 fL (7.4-10.4); Monocytes 5 % (0-10); Neutrophil 84 % (42-75); Nucleated RBC 1 % (0); Platelet Count 271 thou/uL (130-400); Platelet Morphology Comment Appears Adequate; RBC Distribution Width 26.1 % (11.5-14.5); Red Blood Cell (RBC) Count 4.39 mill/uL (4.70-6.10); Target Cells SLIGHT = 2-5 cells (100X) (0-1/hpf); White Blood Cell (WBC) Count 5.5 thou/uL (4.8-10.8)
[2019-04-15] MEDS ORDERED: Levothyroxine Sodium 100 MCG TAB PO SCH (06:00)
[2019-04-15 06:01] LABS: Thyroid Stimulating Hormone 0.3261 uIU/mL (0.35-4.94)
[2019-04-15] MEDS: Mometasone/Formoterol 120 PUFF INHALER INH SCH ×2 (07:32→19:08)
[2019-04-15] MEDS ORDERED: Aspirin 81 mg Enteric Coated Tablet PO SCH (09:00)
[2019-04-15] MEDS ORDERED: Clopidogrel Bisulfate 75 MG TAB PO SCH (09:00)
[2019-04-15] MEDS ORDERED: Losartan 25 MG TAB PO SCH (09:00)
[2019-04-15] MEDS ORDERED: PARoxetine 20 MG TAB PO SCH (09:00)
[2019-04-15] MEDS ORDERED: Allopurinol 300 MG TAB PO SCH (09:00)
[2019-04-15] MEDS: Senokot S 8.6-50 MG TAB PO SCH ×2 (09:16→21:48)
[2019-04-15] MEDS: levETIRAcetam 500 MG TAB PO SCH (09:17)
[2019-04-15] MEDS: Multivit, Therapeutic 1 TAB PO SCH (09:19)
[2019-04-15] MEDS: Pregabalin 50 MG CAP PO SCH ×2 (09:19→15:26)
[2019-04-15] MEDS: guaiFENesin ER 600 MG TAB PO SCH ×2 (09:19→21:49)
--- NOTE | 2019-04-15 12:24 | CON ---
DATE OF CONSULTATION: HISTORY OF PRESENT ILLNESS: A 74-year-old morbidly obese gentleman, who weighs 86 kg, who presented to the ER with hypoxemia and shortness of breath. He saturations were 88% on room air, blood pressure was 165/65, and temperature 97. He sees a [facility] physician for a routine pulmonary care. He denied any chest pain, chills, or sweats. In the ER, he was noted to have lower extremity swelling. His family is at the bedside. He has severe limitation to activity, can barely walk even 50 feet without getting markedly short of breath. PAST MEDICAL HISTORY: Pertinent for COPD, sleep apnea, CVA, traumatic brain injury, and cor pulmonale. PAST SURGICAL HISTORY: Previous surgeries included otherwise facial surgery, sinus surgery, and hand surgery. SOCIAL HISTORY: The patient is smoking a pack a day. Drinks regularly 8 ounces of liquor every day. He was here in February 2019. There is small subdural in the frontal parietal area. HOME MEDICATIONS: Includes: 1. Keppra 750. 2. Librium. 3. Anoro. 4. Thiamine. 5. Flomax. 6. Lyrica 150. 7. Protonix. 8. Prozac 30. 9. Naprosyn. 10. Cozaar 100. 11. Synthroid 100. 12. Hydrochlorothiazide 50. 13. Lasix one. 14. Flovent inhaler. 15. Plavix. 16. Lipitor. REVIEW OF SYSTEMS: Otherwise, unremarkable. PHYSICAL EXAMINATION: VITAL SIGNS: Temperature 97, pulse 109, respirations 20, saturations are 98% on supplemental oxygen, and blood pressure 150/67. HEENT: He is cushingoid, cyanotic. CHEST: Decreased breath sounds. Prolonged expiration. CARDIAC: Normal S1 and S2. No gallops. ABDOMEN: Massive. EXTREMITIES: 2+ edema. LABORATORY DATA: White count 5000, H and H 14 and 45, platelet count 271. His pO2 on admission was 49, pCO2 of 49, and pH 7.45 on room air. Sodium 128 and potassium 3. Thyroid function was normal. IMPRESSION: 1. Chronic obstructive pulmonary disease exacerbation, respiratory failure, ongoing tobacco abuse, morbid obesity, and cor pulmonale. 2. Sleep apnea, alcohol abuse, and tobacco abuse. 3. Hyponatremia. PLAN: Continue present neb treatments, steroid, and Dulera. Nocturnal CPAP. Family is going to bring his machine. His hyponatremia is probably from his diuretics. Hold off diuretics. Slow hydration. We will follow. Consultation note, 70 minutes, 50% direct patient care. Job ID: [id number]
--- NOTE | 2019-04-15 12:34 | PDOC.HOSPP ---
- Subjective Encounter Date: 04/15/19 Encounter Time: 12:20 Subjective: still sob,on O2,audible wheezing across room - Objective Vital Signs & Weight: Vital Signs (12 hours) Temp Pulse Resp BP BP Pulse Ox 04/15/19 11:23 97.8 F 63 21 H 153/72 H 98 04/15/19 10:11 109 H 20 04/15/19 07:52 94 L 04/15/19 07:46 97.4 F L 71 23 H 150/67 H 94 L 04/15/19 07:33 92 L 04/15/19 07:32 77 12 04/15/19 07:28 77 12 04/15/19 03:51 97.3 F L 88 20 161/71 H 91 L 04/15/19 02:54 96 04/15/19 02:42 62 18 96 Weight Weight 191 lb 3.2 oz I&O: 04/14/19 04/15/19 04/16/19 06:59 06:59 07:59 Intake Total 2030 Output Total 325 Balance 1705 Result Diagrams: 04/15/19 04:52 04/15/19 04:52 Hospitalist ROS - Medication Medications: Active Medications Generic Name Dose Route Start Last Admin Trade Name Freq PRN Reason Stop Dose Admin Albuterol/Ipratropium 3 ml 04/14/19 22:30 04/15/19 10:11 Duoneb NEB 3 ml [id number] KENA Administration Allopurinol 300 mg 04/15/19 09:00 04/15/19 09:20 Zyloprim PO 300 mg DAILY KENA Administration Amlodipine Besylate 5 mg 04/14/19 21:00 04/14/19 21:09 Norvasc PO 5 mg QPM KENA Administration Aspirin 81 mg 04/15/19 09:00 04/15/19 09:20 Ecotrin PO 81 mg DAILY KENA Administration Atorvastatin Calcium 40 mg 04/14/19 21:00 04/14/19 21:09 Lipitor PO 40 mg HS KENA Administration Calcium Carbonate 1,000 mg 04/14/19 19:40 04/14/19 21:07 Tums PO 1,000 mg Q4H PRN Administration Heartburn or Indigestion Clopidogrel Bisulfate 75 mg 04/15/19 09:00 04/15/19 09:19 Plavix PO 75 mg DAILY KENA Administration Folic Acid 1 mg 04/14/19 21:00 04/14/19 21:08 Folvite PO 1 mg HS KENA Administration Guaifenesin 600 mg 04/14/19 21:00 04/15/19 09:19 Mucinex PO 600 mg Q12HR KENA Administration Levofloxacin 500 mg/ Device 100 mls @ 100 mls/hr 04/14/19 21:00 04/14/19 21: 10 IVPB 100 mls Q24HR KENA Administration Levetiracetam 750 mg 04/14/19 21:00 04/15/19 09:17 Keppra PO 750 mg BID KENA Administration Levothyroxine Sodium 100 mcg 04/15/19 06:00 04/15/19 05:13 Synthroid PO 100 mcg 0600 KENA Administration Losartan Potassium 50 mg 04/15/19 09:00 04/15/19 09:18 Cozaar PO 50 mg BID KENA Administration Methylprednisolone Sodium Succinate 40 mg 04/14/19 23:59 04/15/19 12:15 Solu-Medrol IVP 40 mg Q6HR KENA Administration Mometasone Furoate/Formoterol Fumar 2 puff 04/15/19 06:30 04/15/19 07:32 Dulera 200 Mcg/5 Mcg Inhaler INH 2 puff BID-RT KENA Administration Multivitamins 1 tab 04/15/19 09:00 04/15/19 09:19 Theragran PO 1 tab DAILY KENA Administration Nicotine 14 mg 04/14/19 21:00 04/14/19 21:06 Nicoderm Patch TD 14 mg Q24HR KENA Administration Pantoprazole Sodium 40 mg 04/15/19 09:00 04/15/19 09:18 Protonix PO 40 mg DAILY KENA Administration Paroxetine HCl 20 mg 04/15/19 09:00 04/15/19 09:18 Paxil PO 20 mg DAILY KENA Administration Pregabalin 50 mg 04/14/19 21:00 04/15/19 09:19 Lyrica PO 50 mg TID KENA Administration Ranolazine 500 mg 04/14/19 21:00 04/15/19 09:20 Ranexa PO 500 mg BID KENA Administration Senna/Docusate Sodium 2 tab 04/14/19 21:00 04/15/19 09:16 Senokot S PO 2 tab BID KENA Administration Tamsulosin HCl 0.4 mg 04/14/19 21:00 04/14/19 21:07 Flomax PO 0.4 mg HS KENA Administration Thiamine HCl 100 mg 04/14/19 21:00 04/14/19 21:09 Thiamine PO 100 mg HS KENA Administration - Exam General Appearance: awake alert Neck: no JVD Heart: RRR, no murmur Respiratory - other findings: hyperresonant,marked wheezes Gastrointestinal: soft, non-tender, normal bowel sounds Extremities: 1+ LE edema Hosp A/P (1) Acute and chronic respiratory failure with hypoxia Code(s): J96.21 - ACUTE AND CHRONIC RESPIRATORY FAILURE WITH HYPOXIA Status: Acute (2) COPD exacerbation Code(s): J44.1 - CHRONIC OBSTRUCTIVE PULMONARY DISEASE W (ACUTE) EXACERBATION Status: Acute (3) CAD (coronary artery disease) Code(s): I25.10 - ATHSCL HEART DISEASE OF [place] CORONARY ARTERY W/O ANG PCTRS Status: Chronic Qualifiers: Coronary Disease-Associated Artery/Lesion type: [place] artery [place] vs. transplanted heart: [place] heart Associated angina: without angina Qualified Code(s): I25.10 - Atherosclerotic heart disease of [place] coronary artery without angina pectoris (4) Alcohol abuse Code(s): F10.10 - ALCOHOL ABUSE, UNCOMPLICATED Status: Chronic (5) Hypokalemia Code(s): E87.6 - HYPOKALEMIA Status: Acute (6) Hyponatremia Code(s): E87.1 - HYPO-OSMOLALITY AND HYPONATREMIA Status: Acute (7) Tobacco abuse Code(s): Z72.0 - TOBACCO USE Status: Acute - Plan contantibx cont nebs cont O2 cont iv steroids discuss with pulmonology monitor melina
[2019-04-15 15:12] VITALS: BMI 32.8
[2019-04-15] MEDS ORDERED: PROVENTIL INHALER 6.7 G (200 INHALATIONS) INH PRN (17:07)
[2019-04-15] MEDS ORDERED: Potassium Chloride 20 MEQ TAB PO SCH (17:15)
[2019-04-15] MEDS: Sodium Chloride 0.9% 1,000 ML IV SCH (17:20)
[2019-04-15] MEDS ORDERED: Mometasone 200 MCG HFA INHALER INH SCH (18:30)
[2019-04-15] MEDS: Pregabalin 75 MG CAP PO SCH (21:49)
[2019-04-15] MEDS: Aspirin 81 mg Enteric Coated Tablet PO SCH (21:52)
[2019-04-15] MEDS: Clopidogrel Bisulfate 75 MG TAB PO SCH (21:53)
[2019-04-15] MEDS: Ferrous Sulfate 325 MG TAB PO SCH (21:53)
[2019-04-15] MEDS: Atorvastatin Calcium 40 MG TAB PO SCH (21:53)
[2019-04-15] MEDS: Folic Acid 1 MG TAB PO SCH (21:54)
[2019-04-15] MEDS: Tamsulosin HCl 0.4 MG CAP PO SCH (21:54)
[2019-04-15] MEDS: Amlodipine 5 MG TAB PO SCH (21:55)
[2019-04-15] MEDS: Nicotine 14 MG PATCH TD SCH (21:55)
[2019-04-15] MEDS: levETIRAcetam 500 mg/5 ml Oral Solution PO SCH (22:00)
[2019-04-16 05:12] LABS: #Lymphocytes 0.7 thou/uL (1.20-3.40); #Monocytes 0.5 thou/uL (0.11-0.59); #Neutrophils 6.4 thou/uL (1.40-6.50); %Basophils 0.2 % (0.0-1.0); %Lymphocytes 9.3 % (21.0-51.0); %Monocytes 6.1 % (0.0-10.0); %Neutrophils 84.4 % (42.0-75.0); Hemoglobin 14.8 g/dL (14.0-18.0); Mean Corpuscular HGB CONC 33.9 g/dL (32.0-36.0); Mean Corpuscular Hemoglobin 33.9 pg (27.0-31.0); Mean Platelet Volume 9.2 fL (7.4-10.4); Platelet Count 289 thou/uL (130-400); RBC Distribution Width 25.9 % (11.5-14.5); Red Blood Cell (RBC) Count 4.37 mill/uL (4.70-6.10); White Blood Cell (WBC) Count 7.6 thou/uL (4.8-10.8)
[2019-04-16] MEDS: methylPREDNISolone Sod Succ 40 MG VIAL IVP SCH ×2 (05:57→11:24)
[2019-04-16] MEDS: Levothyroxine Sodium 100 MCG TAB PO SCH (05:57)
[2019-04-16] MEDS: Sodium Chloride 0.9% 1,000 ML IV SCH (06:02)
[2019-04-16 06:43] LABS: Albumin 3.5 g/dL (3.4-4.8)
[2019-04-16 06:45] LABS: Calcium 8.9 mg/dL (7.8-10.44); Chloride 91 mmol/L (98-107); Potassium 3.1 mmol/L (3.5-5.1); Sodium 129 mmol/L (136-145)
[2019-04-16 06:46] LABS: Globulin 2.6 g/dL (2.4-3.5); Glucose 134 mg/dL (83-110); Protein, Total 6.1 g/dL (5.8-8.1)
[2019-04-16 06:47] LABS: Anion Gap 12 mmol/L (10-20); Carbon Dioxide 29 mmol/L (23-31)
[2019-04-16 06:48] LABS: Bilirubin, Total 0.2 mg/dL (0.2-1.2)
[2019-04-16 06:49] LABS: Alkaline Phosphatase 70 U/L (40-110); Calc. Creatinine Clearance 137 mL/min (70-130); Estimated GFR-MDRD Greater than 90
[2019-04-16 06:50] LABS: BUN (Urea Nitrogen) 10 mg/dL (8.4-25.7)
[2019-04-16 06:51] LABS: AST (SGOT) 11 U/L (5-34)
[2019-04-16 06:52] LABS: ALT (SGPT) 16 U/L (8-55)
[2019-04-16] MEDS: Mometasone/Formoterol 120 PUFF INHALER INH SCH ×2 (07:35→18:59)
[2019-04-16] MEDS: Ferrous Sulfate 325 MG TAB PO SCH ×2 (08:51→21:12)
[2019-04-16] MEDS: levETIRAcetam 500 mg/5 ml Oral Solution PO SCH ×2 (08:51→21:17)
[2019-04-16] MEDS: PARoxetine 20 MG TAB PO SCH (08:52)
[2019-04-16] MEDS: Multivit, Therapeutic 1 TAB PO SCH (08:52)
[2019-04-16] MEDS: Allopurinol 300 MG TAB PO SCH (08:52)
[2019-04-16] MEDS: Losartan 25 MG TAB PO SCH (08:52)
[2019-04-16] MEDS: Thiamine 100 MG TAB PO SCH (08:52)
[2019-04-16] MEDS: Senokot S 8.6-50 MG TAB PO SCH ×2 (08:52→21:13)
[2019-04-16] MEDS: Pregabalin 75 MG CAP PO SCH ×3 (08:53→21:11)
[2019-04-16] MEDS: guaiFENesin ER 600 MG TAB PO SCH ×2 (08:53→21:11)
[2019-04-16] MEDS ORDERED: predniSONE 20 MG TAB PO SCH (09:00)
[2019-04-16] MEDS ORDERED: Azithromycin 250 MG TAB PO SCH (10:45)
--- NOTE | 2019-04-16 10:46 | PDOC.HOSPP ---
- Subjective Encounter Date: 04/16/19 Encounter Time: 10:45 Subjective: still coughing, somewhat less sob - Objective Vital Signs & Weight: Vital Signs (12 hours) Temp Pulse Resp BP BP Pulse Ox 04/16/19 08:58 94 L 04/16/19 08:33 96.9 F L 76 20 166/70 H 94 L 04/16/19 07:35 68 16 04/16/19 07:25 90 L 04/16/19 07:22 68 16 04/16/19 04:53 94 L 04/16/19 04:14 97.4 F L 58 L 18 167/78 H 92 L 04/16/19 01:34 85 16 94 L 04/16/19 00:21 71 16 95 04/16/19 00:00 70 161/74 H 04/15/19 21:45 72 16 92 L Weight Admit Weight 187 lb 6 oz Weight 202 lb 3.2 oz I&O: 04/15/19 04/16/19 04/17/19 05:59 06:59 06:59 Intake Total Output Total Balance Result Diagrams: 04/16/19 04:35 04/16/19 06:13 Hospitalist ROS - Medication Medications: Active Medications Generic Name Dose Route Start Last Admin Trade Name Freq PRN Reason Stop Dose Admin Albuterol/Ipratropium 3 ml 04/14/19 22:30 04/16/19 07:22 Duoneb NEB 3 ml [id number] KENA Administration Allopurinol 300 mg 04/16/19 09:00 04/16/19 08:52 Zyloprim PO 300 mg DAILY KENA Administration Amlodipine Besylate 5 mg 04/15/19 21:00 04/15/19 21:55 Norvasc PO 5 mg HS KENA Administration Aspirin 81 mg 04/15/19 21:00 04/15/19 21:52 Ecotrin PO 81 mg HS KENA Administration Atorvastatin Calcium 40 mg 04/15/19 21:00 04/15/19 21:53 Lipitor PO 40 mg HS KENA Administration Calcium Carbonate 1,000 mg 04/14/19 19:40 04/14/19 21:07 Tums PO 1,000 mg Q4H PRN Administration Heartburn or Indigestion Clopidogrel Bisulfate 75 mg 04/15/19 21:00 04/15/19 21:53 Plavix PO 75 mg HS KENA Administration Ferrous Sulfate 325 mg 04/15/19 21:00 04/16/19 08:51 Feosol PO 325 mg BID KENA Administration Folic Acid 1 mg 04/14/19 21:00 04/15/19 21:54 Folvite PO 1 mg HS KENA Administration Guaifenesin 600 mg 04/14/19 21:00 04/16/19 08:53 Mucinex PO 600 mg Q12HR KENA Administration Levetiracetam 750 mg 04/15/19 21:00 04/16/19 08:51 Keppra Oral Solution PO 750 mg BID KENA Administration Levothyroxine Sodium 100 mcg 04/16/19 06:00 04/16/19 05:57 Synthroid PO 100 mcg 0600 KENA Administration Losartan Potassium 100 mg 04/16/19 09:00 04/16/19 08:52 Cozaar PO 100 mg DAILY KENA Administration Methylprednisolone Sodium Succinate 40 mg 04/14/19 23:59 04/16/19 05:57 Solu-Medrol IVP 40 mg Q6HR KENA Administration Mometasone Furoate/Formoterol Fumar 2 puff 04/15/19 06:30 04/16/19 07:35 Dulera 200 Mcg/5 Mcg Inhaler INH 2 puff BID-RT KENA Administration Multivitamins 1 tab 04/15/19 09:00 04/16/19 08:52 Theragran PO 1 tab DAILY [facility] Administration Nicotine 14 mg 04/14/19 21:00 04/15/19 21:55 Nicoderm Patch TD 14 mg Q24HR KENA Administration Pantoprazole Sodium 40 mg 04/16/19 09:00 04/16/19 08:53 Protonix PO 40 mg DAILY KENA Administration Paroxetine HCl 30 mg 04/16/19 09:00 04/16/19 08:52 Paxil PO 30 mg DAILY KENA Administration Prednisone 10 mg 04/16/19 09:00 04/16/19 08:52 Prednisone PO 10 mg DAILY KENA Administration Pregabalin 150 mg 04/15/19 21:00 04/16/19 08:53 Lyrica PO 150 mg TID KENA Administration Ranolazine 1,000 mg 04/16/19 09:00 04/16/19 08:51 Ranexa PO 1,000 mg DAILY KENA Administration Senna/Docusate Sodium 2 tab 04/14/19 21:00 04/16/19 08:52 Senokot S PO 2 tab BID KENA Administration Tamsulosin HCl 0.4 mg 04/15/19 21:00 04/15/19 21:54 Flomax PO 0.4 mg HS KENA Administration Thiamine HCl 100 mg 04/16/19 09:00 04/16/19 08:52 Thiamine PO 100 mg DAILY KENA Administration - Exam General Appearance: awake alert Neck: no JVD Heart: RRR, no murmur Respiratory - other findings: wheezes all ffields Gastrointestinal: soft, normal bowel sounds Extremities: no edema Hosp A/P (1) Acute and chronic respiratory failure with hypoxia Code(s): J96.21 - ACUTE AND CHRONIC RESPIRATORY FAILURE WITH HYPOXIA Status: Acute (2) COPD exacerbation Code(s): J44.1 - CHRONIC OBSTRUCTIVE PULMONARY DISEASE W (ACUTE) EXACERBATION Status: Acute (3) CAD (coronary artery disease) Code(s): I25.10 - ATHSCL HEART DISEASE OF [place] CORONARY ARTERY W/O ANG PCTRS Status: Chronic Qualifiers: Coronary Disease-Associated Artery/Lesion type: [place] artery [place] vs. transplanted heart: [place] heart Associated angina: without angina Qualified Code(s): I25.10 - Atherosclerotic heart disease of [place] coronary artery without angina pectoris (4) Alcohol abuse Code(s): F10.10 - ALCOHOL ABUSE, UNCOMPLICATED Status: Chronic (5) Hypokalemia Code(s): E87.6 - HYPOKALEMIA Status: Acute (6) Hyponatremia Code(s): E87.1 - HYPO-OSMOLALITY AND HYPONATREMIA Status: Acute (7) Tobacco abuse Code(s): Z72.0 - TOBACCO USE Status: Acute - Plan contantibx -zithromax po cont nebs cont O2 po prednisone discuss with pulmonology monitor melina
--- NOTE | 2019-04-16 12:11 | PRG ---
DATE OF SERVICE: 04/16/2019 SUBJECTIVE: This morning, he said he is feeling better, less short of breath. OBJECTIVE: VITAL SIGNS: Temperature 97, pulse 69, respirations 20, saturations 94% on 2 L, and blood pressure 140/71. CHEST: No wheezing. No crackles. CARDIAC: Normal S1 and S2. No gallops. ABDOMEN: No masses. LABORATORY DATA: White count 7. Lytes are normal. Sodium 129. ASSESSMENT: Obstructive sleep apnea, chronic obstructive pulmonary disease, morbid obesity, hyponatremia, and alcohol and tobacco abuse. PLAN: Pulmonary mayer looks pretty stable. Discontinue steroids. Continue neb treatment. Continue his nocturnal CPAP. Eventually placement. Job ID: [id number]
[2019-04-16] MEDS ORDERED: Potassium Chloride 20 MEQ TAB PO SCH (15:15)
[2019-04-16] MEDS: Aspirin 81 mg Enteric Coated Tablet PO SCH (21:11)
[2019-04-16] MEDS: Folic Acid 1 MG TAB PO SCH (21:12)
[2019-04-16] MEDS: Atorvastatin Calcium 40 MG TAB PO SCH (21:12)
[2019-04-16] MEDS: Tamsulosin HCl 0.4 MG CAP PO SCH (21:12)
[2019-04-16] MEDS: Clopidogrel Bisulfate 75 MG TAB PO SCH (21:12)
[2019-04-16] MEDS: Amlodipine 5 MG TAB PO SCH (21:13)
[2019-04-16] MEDS: Nicotine 14 MG PATCH TD SCH (21:21)
[2019-04-17] MEDS: Levothyroxine Sodium 100 MCG TAB PO SCH (06:07)
[2019-04-17] MEDS: Mometasone/Formoterol 120 PUFF INHALER INH SCH (06:54)
[2019-04-17] MEDS ORDERED: predniSONE 20 MG TAB PO SCH ×2 (08:00)
[2019-04-17] MEDS: Senokot S 8.6-50 MG TAB PO SCH (08:06)
[2019-04-17] MEDS: levETIRAcetam 500 mg/5 ml Oral Solution PO SCH (08:06)
[2019-04-17] MEDS: Losartan 25 MG TAB PO SCH (08:06)
[2019-04-17] MEDS: Pregabalin 75 MG CAP PO SCH ×2 (08:07→14:41)
[2019-04-17] MEDS: PARoxetine 20 MG TAB PO SCH (08:07)
[2019-04-17] MEDS: Ferrous Sulfate 325 MG TAB PO SCH (08:07)
[2019-04-17] MEDS: Allopurinol 300 MG TAB PO SCH (08:08)
[2019-04-17] MEDS: guaiFENesin ER 600 MG TAB PO SCH (08:08)
[2019-04-17] MEDS: Multivit, Therapeutic 1 TAB PO SCH (08:08)
[2019-04-17] MEDS: Thiamine 100 MG TAB PO SCH (08:08)
--- NOTE | 2019-04-17 09:48 | PRG ---
DATE OF SERVICE: 04/17/2019 SUBJECTIVE: Rell Bustos is a morbidly obese gentleman, who is noncompliant, did not put his CPAP on last night. OBJECTIVE: VITAL SIGNS: Temperature 98.7, blood pressure 157/85, respiratory rate 20, pulse 64, and saturations 96% on 2 L. GENERAL: He is walking in the halls. CHEST: Decreased breath sounds. No wheezing. CARDIAC: Normal S1 and S2. No gallops. ABDOMEN: No masses. ASSESSMENT: Chronic obstructive pulmonary disease, obstructive sleep apnea, severe deconditioning, alcohol and tobacco abuse. Disposition, home any time. Follow up with his primary meteorological engineer. Job ID: [id number]
--- NOTE | 2019-04-17 09:59 | PDOC.HOSPP ---
- Subjective Encounter Date: 04/17/19 Encounter Time: 11:20 Subjective: Patient feeling much better. States he is ready to go home. Still on 1L NC and doesn't use any O2 except with his CPAP at night at home. states he gets incredibly short winded at home with any ambulation. - Objective Vital Signs & Weight: Vital Signs (12 hours) Temp Pulse Resp BP BP BP Pulse Ox 04/17/19 08:08 95 04/17/19 08:00 157/85 H 04/17/19 07:53 97.3 F L 64 20 157/85 H 95 04/17/19 06:54 62 16 04/17/19 04:11 98.1 F 66 18 134/76 97 04/17/19 04:00 134/76 04/17/19 00:00 97.6 F 62 20 174/72 H 174/72 H 98 04/16/19 22:48 72 14 94 L Weight Admit Weight 187 lb 6 oz Weight 202 lb 3.2 oz I&O: 04/16/19 04/17/19 04/18/19 06:59 06:59 06:59 Intake Total 840 1800 Output Total 1000 Balance 840 800 Result Diagrams: 04/16/19 04:35 04/16/19 06:13 Hospitalist ROS - Review of Systems Constitutional: denies: fever, chills Respiratory: reports: SOB with excertion. denies: cough, shortness of breath Cardiovascular: denies: chest pain, palpitations Gastrointestinal: denies: nausea, vomiting, abdominal pain - Medication Medications: Active Medications Generic Name Dose Route Start Last Admin Trade Name Karthik PRN Reason Stop Dose Admin Albuterol/Ipratropium 3 ml 04/14/19 22:30 04/17/19 06:54 Duoneb NEB 3 ml [id number] KENA Administration Allopurinol 300 mg 04/16/19 09:00 04/17/19 08:08 Zyloprim PO 300 mg DAILY KENA Administration Amlodipine Besylate 5 mg 04/15/19 21:00 04/16/19 21:13 Norvasc PO 5 mg HS KENA Administration Aspirin 81 mg 04/15/19 21:00 04/16/19 21:11 Ecotrin PO 81 mg HS KENA Administration Atorvastatin Calcium 40 mg 04/15/19 21:00 04/16/19 21:12 Lipitor PO 40 mg HS KENA Administration Calcium Carbonate 1,000 mg 04/14/19 19:40 04/14/19 21:07 Tums PO 1,000 mg Q4H PRN Administration Heartburn or Indigestion Clopidogrel Bisulfate 75 mg 04/15/19 21:00 04/16/19 21:12 Plavix PO 75 mg HS KENA Administration Ferrous Sulfate 325 mg 04/15/19 21:00 04/17/19 08:07 Feosol PO 325 mg BID KENA Administration Folic Acid 1 mg 04/14/19 21:00 04/16/19 21:12 Folvite PO 1 mg HS KENA Administration Guaifenesin 600 mg 04/14/19 21:00 04/17/19 08:08 Mucinex PO 600 mg Q12HR KENA Administration Levetiracetam 750 mg 04/15/19 21:00 04/17/19 08:06 Keppra Oral Solution PO Not Given BID KENA Levothyroxine Sodium 100 mcg 04/16/19 06:00 04/17/19 06:07 Synthroid PO 100 mcg 0600 KENA Administration Losartan Potassium 100 mg 04/16/19 09:00 04/17/19 08:06 Cozaar PO 100 mg DAILY KENA Administration Mometasone Furoate/Formoterol Fumar 2 puff 04/15/19 06:30 04/17/19 06:54 Dulera 200 Mcg/5 Mcg Inhaler INH 2 puff BID-RT KENA Administration Multivitamins 1 tab 04/15/19 09:00 04/17/19 08:08 Theragran PO 1 tab DAILY KENA Administration Nicotine 14 mg 04/14/19 21:00 04/16/19 21:21 Nicoderm Patch TD 14 mg Q24HR KENA Administration Pantoprazole Sodium 40 mg 04/16/19 09:00 04/17/19 08:08 Protonix PO 40 mg DAILY KENA Administration Paroxetine HCl 30 mg 04/16/19 09:00 04/17/19 08:07 Paxil PO 30 mg DAILY KENA Administration Prednisone 40 mg 04/17/19 08:00 04/17/19 08:08 Prednisone PO 40 mg QAM-WM KENA Administration Pregabalin 150 mg 04/15/19 21:00 04/17/19 08:07 Lyrica PO 150 mg TID KENA Administration Ranolazine 1,000 mg 04/16/19 09:00 04/17/19 08:08 Ranexa PO 1,000 mg DAILY KENA Administration Senna/Docusate Sodium 2 tab 04/14/19 21:00 04/17/19 08:06 Senokot S PO 2 tab BID KENA Administration Tamsulosin HCl 0.4 mg 04/15/19 21:00 04/16/19 21:12 Flomax PO 0.4 mg HS KENA Administration Thiamine HCl 100 mg 04/16/19 09:00 04/17/19 08:08 Thiamine PO 100 mg DAILY KENA Administration - Exam General Appearance: NAD, awake alert ENT: moist mucosa Heart: RRR, no murmur, no gallops, no rubs Respiratory: no rales, no ronchi, normal chest expansion, no tachypnea Respiratory - other findings: scattered wheezes, good airmovement throughout all lung varela Gastrointestinal: soft, non-tender, non-distended, normal bowel sounds Psychiatric: normal affect, normal behavior, A&O x 3 Hosp A/P (1) COPD exacerbation Code(s): J44.1 - CHRONIC OBSTRUCTIVE PULMONARY DISEASE W (ACUTE) EXACERBATION Status: Acute (2) Acute and chronic respiratory failure with hypoxia Code(s): J96.21 - ACUTE AND CHRONIC RESPIRATORY FAILURE WITH HYPOXIA Status: Acute (3) SHERRILL (obstructive sleep apnea) Code(s): G47.33 - OBSTRUCTIVE SLEEP APNEA (ADULT) (PEDIATRIC) Status: Chronic (4) CAD (coronary artery disease) Code(s): I25.10 - ATHSCL HEART DISEASE OF [place] CORONARY ARTERY W/O ANG PCTRS Status: Chronic Qualifiers: Coronary Disease-Associated Artery/Lesion type: [place] artery [place] vs. transplanted heart: [place] heart Associated angina: without angina Qualified Code(s): I25.10 - Atherosclerotic heart disease of [place] coronary artery without angina pectoris (5) Tobacco abuse Code(s): Z72.0 - TOBACCO USE Status: Acute (6) Alcohol abuse Code(s): F10.10 - ALCOHOL ABUSE, UNCOMPLICATED Status: Chronic (7) Hypokalemia Code(s): E87.6 - HYPOKALEMIA Status: Acute (8) Hyponatremia Code(s): E87.1 - HYPO-OSMOLALITY AND HYPONATREMIA Status: Acute - Plan Check O2 sats at rest and with ambulation on RA. If drops will need home O2. D/C home today after O2 assessment.
[2019-04-17 11:37] VITALS: TEMP 97.5
[2019-04-17 16:38] VITALS: BP 156/71
--- NOTE | 2019-04-18 06:56 | DIS ---
DATE OF ADMISSION: 04/14/2019 DATE OF DISCHARGE: 04/17/2019 PRIMARY CARE PHYSICIAN: Kathia Yu. REASON FOR ADMISSION: Acute on chronic hypoxic respiratory failure and chronic obstructive pulmonary disease. DISCHARGE DIAGNOSES: 1. Chronic obstructive pulmonary disease exacerbation. 2. Acute on chronic respiratory failure with hypoxia. 3. Obstructive sleep apnea. 4. Coronary artery disease. 5. Diastolic dysfunction of the heart. 6. Tobacco abuse. 7. Alcohol abuse. PROCEDURES: 1. CT of the brain showing no acute intracranial process. 2. CT of the cervical spine showing no evidence for fracture or traumatic subluxation. 3. Echocardiogram showing ejection fraction of 55% to 60% with grade 2/3 diastolic dysfunction. CONSULTATIONS: Pulmonology, Dr. Busby. SUMMARY OF HOSPITAL COURSE: This is a 74-year-old male with obstructive sleep apnea, on CPAP with oxygen during CPAP only along with COPD, who presented with shortness of breath, worse with exertion. His O2 sats were 82% on room air in the emergency room. He was brought to the hospital, he was given nebs and steroids, no antibiotics. He improved during his hospitalization markedly. The patient did have a syncopal episode after a severe coughing spell where he hit his head, so he had a CT in the ER of his head and neck, which was normal. Dr. Busby was consulted and managed during this hospitalization. The patient improved markedly. He was switched to oral steroids and nebs. On the day of discharge, the patient was cleared for discharge by Dr. Busby. The patient was still on 1 L nasal cannula, did test him on room air. His saturations dropped to 90% on room air at rest, but down to the 70s with ambulation, so we are setting him with home oxygen and then will be discharging him home. DISCHARGE MANAGEMENT: Discharged home. ACTIVITY: As tolerated. DIET: Healthy heart fluid-restricted diet. TREATMENTS: Nebulizer treatments and oxygen. FOLLOWUP: Follow up with primary care physician as an outpatient and with his primary planishing press operator, who I believe works at [employer], in 1 to 2 weeks. DISCHARGE MEDICATIONS: 1. Guaifenesin ER 600 mg twice a day, 14 tablets dispensed. 2. Prednisone 40 mg daily, that is two tablets of the 20 mg for two more days. 3. Albuterol inhaler as needed. 4. Allopurinol 300 mg daily. 5. Amlodipine 5 mg at night. 6. Aspirin 81 mg daily. 7. Atorvastatin 40 mg at night. 8. Librium as needed. 9. Clopidogrel 75 mg at night. 10. Ferrous sulfate 325 mg twice a day. 11. Keppra 750 mg twice a day. 12. Levothyroxine 100 mcg daily. 13. Losartan 100 mg daily. 14. Protonix 40 mg daily. 15. Paroxetine 30 mg daily. 16. Lyrica 150 mg 3 times a day. 17. Ranolazine extended release 1000 mg daily. 18. Tamsulosin 0.4 mg at night. 19. Thiamine 100 mg daily. 20. Flovent 4 sprays inhaled twice a day. 21. Furosemide 40 mg daily. 22. Levofloxacin, to continue his outpatient antibiotic course for the full length of treatment. 23. Multivitamin daily. 24. Naproxen as needed. 25. Anoro Ellipta 1 inhalation daily. Arranging the details of this discharge took 35 minutes. Job ID: [id number]
--- NOTE | 2019-04-18 23:48 | PQF ---
[employer] Assembler And Gluer Crystal Reports Winform Viewer NILES GILBERT RYAN ANDREW MD [id number] [facility]-283 [id number] CLINICAL DOCUMENTATION CLARIFICATION FORM: POST DISCHARGE Addendum to original discharge summary date: ____ Late entry note date: __ DATE: 04/18/19 ATTN:Eddie Oliver Please exercise your independent, professional judgment in responding to the clarification form. Clinical indicators are provided on the bottom of this form for your review Can you please further clarify the diagnosis of the patient? Please check appropriate box(s): HEART FAILURE: A. TYPE: [ ] Systolic / HFrEF [ X ] Diastolic / HFpEF [ ] Combined Systolic / Diastolic B. ACUITY [ ] Acute [ X ] Acute on Chronic [ ] Chronic [ ] No CHF [ ] Other diagnosis [ ] Unable to determine In addition, please specify: Present on Admission (POA): [ X ] Yes [ ] No [ ] Unable to determine For continuity of documentation, please document condition throughout progress notes and discharge summary. Thank You. CLINICAL INDICATORS - SIGNS / SYMPTOMS / LABS ED Provider pg.4- CHF Exacerbation H and P pg.1- short of breath on Mild to moderate exertion H and P pg.1- started on Levaquin and prednisone along with Lasix H and P pg.4- echocardiogram will be obtained to rule out CHF. H and P pg.4- His BNP is 64.1 Echocardiogram pg.1- EF is visually estimated at 55-60% Echocardiogram pg.1-Grade 2/3 diastolic dysfunction DS pg.1- Diastolic dysfunction of the heart RISKS: COPD- H and P pg.1 SHERRILL- H and P pg.1 Hypertension- H and P pg.1 CAD- H and P pg.1 Acute n chronic respiratory failure- H and P pg.4 Morbid obesity- PN 04/15 pg.1 TREATMENTS: Chest X ray 04/13 Pulmonary Consult 04/14 Dr. Busby Echocardiogram 04/14 IV Lasix MAR Oxygen supplementation (This form is maintained as a part of the permanent medical record) 2014 [employer]. All Rights Reserved [email or web address]
--- NOTE | 2019-04-19 20:53 | PQF ---
SAP Referral Rn Crystal Reports WinNILES Garcia RYAN ANDREW MD [id number] [facility]-283 [id number] CLINICAL DOCUMENTATION CLARIFICATION FORM: POST DISCHARGE Addendum to original discharge summary date: ____ Late entry note date: __ DATE: 04/19/19 ATTN: Eddie Oliver Please exercise your independent, professional judgment in responding to the clarification form. Clinical indicators are provided on the bottom of this form for your review In your clinical opinion based on clinical findings below, can you please clarify the patient's reason for inpatient admission, if due to: Please check appropriate box(s): [ ] Acute on chronic diastolic CHF [ ] Acute on chronic Respiratory failure [ X ] COPD Exacerbation [ ] Other diagnosis [ ] Unable to determine In addition, please specify: Present on Admission (POA): [ X ] Yes [ ] No [ ] Unable to determine For continuity of documentation, please document condition throughout progress notes and discharge summary. Thank You. CLINICAL INDICATORS - SIGNS / SYMPTOMS / LABS ED Provider pg.4- CHF Exacerbation H and P pg.1- short of breath on mild to moderate exertion H and P pg.1- started on Levaquin and prednisone along with Lasix DS pg.1- Diastolic dysfunction of the heart DS pg.1- "Reason for admission: acute on chronic hypoxic respiratory failure and COPD exacerbation" RISK FACTORS SHERRILL- H and P pg.1 Hypertension- H and P pg.1 CAD- H and P pg.1 Morbid obesity- PN 04/15 pg.1 TREATMENTS: Chest X ray 04/13 Pulmonary Consult 04/14 Dr. Busby Echocardiogram 04/14 IV Lasix MAR Oxygen supplementation CPAP, nebs and steroids- DS pg.1 (This form is maintained as a part of the permanent medical record) 2014 [employer]. All Rights Reserved [email or web address]
== END 2019-04-17 17:32 | disposition home or self-care (01) | DRG 190 ==
LOC: ERS 11:48 → 2NO 14:50 → T4-A 04-16 17:47
PROVIDERS: ADMIT Internal Medicine; ATTEND Internal Medicine
DX: J44.1 Chronic obstructive pulmonary disease with (acute) exacerbation (principal); J96.21 Acute and chronic respiratory failure with hypoxia; J96.22 Acute and chronic respiratory failure with hypercapnia; I50.33 Acute on chronic diastolic (congestive) heart failure; E87.1 Hypo-osmolality and hyponatremia; I11.0 Hypertensive heart disease with heart failure; G47.33 Obstructive sleep apnea (adult) (pediatric); I25.10 Atherosclerotic heart disease of native coronary artery without angina pectoris; F10.20 Alcohol dependence, uncomplicated; F17.210 Nicotine dependence, cigarettes, uncomplicated; M10.9 Gout, unspecified; E78.5 Hyperlipidemia, unspecified; I65.29 Occlusion and stenosis of unspecified carotid artery; E87.6 Hypokalemia; G40.909 Epilepsy, unspecified, not intractable, without status epilepticus; E03.9 Hypothyroidism, unspecified; I73.9 Peripheral vascular disease, unspecified; I27.81 Cor pulmonale (chronic); E66.01 Morbid (severe) obesity due to excess calories; Z68.32 Body mass index [BMI] 32.0-32.9, adult; Z87.820 Personal history of traumatic brain injury; Z88.0 Allergy status to penicillin; Z88.5 Allergy status to narcotic agent; Z79.890 Hormone replacement therapy; Z79.51 Long term (current) use of inhaled steroids; Z79.52 Long term (current) use of systemic steroids; Z79.899 Other long term (current) drug therapy; Z99.89 Dependence on other enabling machines and devices
CPT/HCPCS: 36415; 36416; 70450; 71045; 72125; 80053; 82607; 82746; 82805; 83880; 83930; 83935; 84300; 84443; 84484; 85025; 93005; 93306; 94640; 94660; 94664; 94760; 96365; 96375; J1956; J2920; J2930; J3475; J7512; J7620

== ENCOUNTER 2020-11-14 13:37 | Inpatient (IN) | payer MEDICARE ==
[2020-11-14 14:14] LABS: #Basophils 0.1 thou/uL (0.0-0.2); #Eosinphils 0.5 thou/uL (0.0-0.7); #Lymphocytes 0.9 thou/uL (1.20-3.40); #Monocytes 1.4 thou/uL (0.11-0.59); #Neutrophils 7.4 thou/uL (1.40-6.50); %Basophils 0.6 % (0.0-1.0); %Eosinophils 4.6 % (0.0-10.0); %Monocytes 13.3 % (0.0-10.0); %Neutrophils 72.4 % (42.0-75.0); Hemoglobin 12.1 g/dL (14.0-18.0); Mean Corpuscular HGB CONC 35.7 g/dL (32.0-36.0); Mean Corpuscular Hemoglobin 38.6 pg (27.0-31.0); Mean Platelet Volume 7.1 fL (7.4-10.4); Platelet Count 276 thou/uL (130-400); Red Blood Cell (RBC) Count 3.13 mill/uL (4.70-6.10); White Blood Cell (WBC) Count 10.2 thou/uL (4.8-10.8)
[2020-11-14 14:31] LABS: MDiff Complete? YES; Macrocytosis SLIGHT = 6-15 cells (100X) (0-5/hpf); Platelet Morphology Comment Appears Adequate
[2020-11-14 14:44] LABS: ALT (SGPT) 24 U/L (8-55); AST (SGOT) 49 U/L (5-34); Albumin 3.9 g/dL (3.4-4.8); Alkaline Phosphatase 57 U/L (40-110); Anion Gap 15 mmol/L (10-20); BUN (Urea Nitrogen) 13 mg/dL (8.4-25.7); Bilirubin, Total 0.4 mg/dL (0.2-1.2); Calc. Creatinine Clearance 0 mL/min (70-130); Calcium 9.3 mg/dL (7.8-10.44); Carbon Dioxide 23 mmol/L (23-31); Chloride 91 mmol/L (98-107); Globulin 3.3 g/dL (2.4-3.5); Glucose 87 mg/dL (83-110); Potassium 5.7 mmol/L (3.5-5.1); Protein, Total 7.2 g/dL (5.8-8.1); Sodium 123 mmol/L (136-145)
[2020-11-14 16:18] LABS: Bacteria/HPF None Seen HPF (None Seen); Bilirubin Negative (Negative); Blood, Urine Negative (Negative); Clarity Clear (Clear); Glucose, Urine (Dipstick) Normal (Negative); Ketone, Urine Negative (Negative); Leukocyte Negative Leu/uL (Negative); Nitrite Negative (Negative); Protein, Urine (Dipstick) 70 mg/dL (Neg-Trace); RBC/HPF None Seen HPF (0-3); Specific Gravity, Urine 1.016 (1.002-1.036); Squamous Epithelial None Seen HPF (0-3); Urobilinogen Normal mg/dL (Less than 2); WBC/HPF 0-3 HPF (0-3); pH, Urine 6.5 (5.0-9.0)
[2020-11-14] MEDS ORDERED: Acetaminophen 650 MG Suppository PR PRN (17:31)
[2020-11-14] MEDS ORDERED: Ondansetron ODT 4 MG TAB PO PRN (17:31)
[2020-11-14] MEDS ORDERED: Senokot S 8.6-50 MG TAB PO PRN (17:31)
[2020-11-14] MEDS ORDERED: Nicotine 14 MG PATCH TD PRN (17:31)
[2020-11-14] MEDS ORDERED: Ondansetron PF 4 MG/2 ML Vial IVP PRN (17:31)
[2020-11-14] MEDS ORDERED: Acetaminophen 325 MG TAB PO PRN (17:31)
[2020-11-14] MEDS ORDERED: Albuterol Sulfate 2.5 mg/3 ml Neb NEB PRN (17:56)
[2020-11-14] MEDS ORDERED: Dextrose 50% Abboject 50 ML SYRINGE SLOW IVP PRN (17:57)
[2020-11-14] MEDS ORDERED: Insulin Regular 300 UNITS/3 ML VIAL IVP SCH (18:00)
[2020-11-14 18:50] LABS: Magnesium 1.5 mg/dL (1.6-2.6); Phosphorus 2.5 mg/dL (2.3-4.7)
[2020-11-14 18:51] LABS: Anion Gap 14 mmol/L (10-20); BUN (Urea Nitrogen) 10 mg/dL (8.4-25.7); Calc. Creatinine Clearance 0 mL/min (70-130); Calcium 8.9 mg/dL (7.8-10.44); Carbon Dioxide 24 mmol/L (23-31); Chloride 93 mmol/L (98-107); Glucose 129 mg/dL (83-110); Potassium 3.2 mmol/L (3.5-5.1); Sodium 128 mmol/L (136-145)
[2020-11-14] MEDS ORDERED: Multivit, Therapeutic 1 TAB PO SCH (19:15)
[2020-11-14] MEDS: Lorazepam 1 MG TAB PO SCH (20:27)
[2020-11-14] MEDS ORDERED: Amlodipine 5 MG TAB PO SCH (21:00)
[2020-11-14] MEDS ORDERED: Magnesium Sulfate 4 GM in Sodium Chloride 0.9% 250 ML 250 ML IVPB SCH (21:00)
[2020-11-14] MEDS ORDERED: Potassium Chloride 20 MEQ TAB PO SCH (21:00)
[2020-11-14] MEDS ORDERED: Ferrous Sulfate 325 MG TAB PO SCH (21:30)
[2020-11-14] MEDS: levETIRAcetam 500 mg/5 ml Oral Solution PO SCH (21:47)
[2020-11-14] MEDS: Tamsulosin HCl 0.4 MG CAP PO SCH (21:48)
[2020-11-14] MEDS: Aspirin 81 mg Enteric Coated Tablet PO SCH (21:48)
[2020-11-14] MEDS: Clopidogrel Bisulfate 75 MG TAB PO SCH (21:49)
[2020-11-14 22:52] LABS: Anion Gap 12 mmol/L (10-20); BUN (Urea Nitrogen) 11 mg/dL (8.4-25.7); Calc. Creatinine Clearance 0 mL/min (70-130); Calcium 8.8 mg/dL (7.8-10.44); Carbon Dioxide 26 mmol/L (23-31); Chloride 93 mmol/L (98-107); Glucose 131 mg/dL (83-110); Sodium 128 mmol/L (136-145)
[2020-11-14 23:46] VITALS: BMI 36.3
[2020-11-15 02:52] LABS: Bacteria/HPF None Seen HPF (None Seen); Bilirubin Negative (Negative); Blood, Urine Negative (Negative); Clarity Clear (Clear); Glucose, Urine (Dipstick) Normal (Negative); Ketone, Urine Negative (Negative); Leukocyte Negative Leu/uL (Negative); Nitrite Negative (Negative); Protein, Urine (Dipstick) 50 mg/dL (Neg-Trace); RBC/HPF 0-3 HPF (0-3); Specific Gravity, Urine 1.016 (1.002-1.036); Squamous Epithelial None Seen HPF (0-3); Urobilinogen Normal mg/dL (Less than 2); WBC/HPF 0-3 HPF (0-3); pH, Urine 6.5 (5.0-9.0)
[2020-11-15] MEDS: Lorazepam 1 MG TAB PO SCH ×4 (02:54→20:24)
[2020-11-15 02:59] LABS: Urine Culture Reflex No No
[2020-11-15 05:04] LABS: #Eosinphils 0.6 thou/uL (0.0-0.7); #Lymphocytes 0.8 thou/uL (1.20-3.40); #Monocytes 1.1 thou/uL (0.11-0.59); %Basophils 0.5 % (0.0-1.0); %Lymphocytes 10.3 % (21.0-51.0); %Monocytes 14.9 % (0.0-10.0); %Neutrophils 66.3 % (42.0-75.0); Hemoglobin 11.7 g/dL (14.0-18.0); Mean Corpuscular HGB CONC 34.5 g/dL (32.0-36.0); Mean Corpuscular Hemoglobin 37.8 pg (27.0-31.0); Mean Platelet Volume 7.3 fL (7.4-10.4); Platelet Count 270 thou/uL (130-400); Red Blood Cell (RBC) Count 3.09 mill/uL (4.70-6.10); White Blood Cell (WBC) Count 7.5 thou/uL (4.8-10.8)
[2020-11-15 05:29] LABS: Anion Gap 11 mmol/L (10-20); BUN (Urea Nitrogen) 8 mg/dL (8.4-25.7); Calc. Creatinine Clearance 136 mL/min (70-130); Calcium 8.6 mg/dL (7.8-10.44); Carbon Dioxide 25 mmol/L (23-31); Chloride 93 mmol/L (98-107); Glucose 101 mg/dL (83-110); Magnesium 2.1 mg/dL (1.6-2.6); Potassium 3.5 mmol/L (3.5-5.1); Sodium 125 mmol/L (136-145)
[2020-11-15] MEDS ORDERED: Levothyroxine Sodium 100 MCG TAB PO SCH ×2 (06:00)
[2020-11-15 08:33] LABS: SARS-CoV-2 PCR by NAA Not Detected (NotDetected)
[2020-11-15] MEDS ORDERED: Spironolactone 25 MG TAB PO SCH (09:00)
[2020-11-15] MEDS: levETIRAcetam 500 mg/5 ml Oral Solution PO SCH ×2 (10:18→20:21)
[2020-11-15] MEDS: Torsemide 10 MG TAB PO SCH (10:19)
[2020-11-15] MEDS: Losartan 25 MG TAB PO SCH (10:19)
[2020-11-15] MEDS: Sodium Bicarbonate Tab 325 MG TAB PO SCH ×3 (10:19→20:21)
[2020-11-15] MEDS: Multivitamin W/ Minerals 1 TAB PO SCH (10:19)
[2020-11-15] MEDS: Allopurinol 300 MG TAB PO SCH (10:20)
[2020-11-15] MEDS: Ferrous Sulfate 325 MG TAB PO SCH ×2 (10:20→17:08)
[2020-11-15] MEDS: PARoxetine 20 MG TAB PO SCH (10:20)
[2020-11-15] MEDS: Folic Acid 1 MG TAB PO SCH (10:20)
[2020-11-15] MEDS: Multivit, Therapeutic 1 TAB PO SCH (10:21)
[2020-11-15] MEDS: Mometasone Furoate 120 PUFF 220 MCG INH SCH (10:27)
[2020-11-15 10:50] LABS: Albumin 3.9 g/dL (3.4-4.8); Anion Gap 10 mmol/L (10-20); BUN (Urea Nitrogen) 7 mg/dL (8.4-25.7); BUN/Creatinine Ratio 10.94; Calc. Creatinine Clearance 131 mL/min (70-130); Calcium 8.9 mg/dL (7.8-10.44); Carbon Dioxide 28 mmol/L (23-31); Chloride 93 mmol/L (98-107); Glucose 127 mg/dL (83-110); Phosphorus 2.4 mg/dL (2.3-4.7); Potassium 3.1 mmol/L (3.5-5.1); Sodium 128 mmol/L (136-145)
[2020-11-15] MEDS ORDERED: Potassium Chloride 20 MEQ TAB PO SCH ×2 (12:00→13:30)
[2020-11-15 15:47] LABS: Anion Gap 13 mmol/L (10-20); BUN (Urea Nitrogen) 7 mg/dL (8.4-25.7); Calc. Creatinine Clearance 135 mL/min (70-130); Carbon Dioxide 25 mmol/L (23-31); Chloride 93 mmol/L (98-107); Glucose 94 mg/dL (83-110); Potassium 3.3 mmol/L (3.5-5.1); Sodium 128 mmol/L (136-145)
[2020-11-15] MEDS ORDERED: Amlodipine 10 MG TAB PO SCH (16:15)
[2020-11-15] MEDS: Sodium Chloride 1 GM TAB PO SCH (20:21)
[2020-11-15] MEDS: Aspirin 81 mg Enteric Coated Tablet PO SCH (20:21)
[2020-11-15] MEDS: Clopidogrel Bisulfate 75 MG TAB PO SCH (20:21)
[2020-11-15] MEDS: Tamsulosin HCl 0.4 MG CAP PO SCH (20:21)
[2020-11-15 21:42] LABS: Anion Gap 13 mmol/L (10-20); BUN (Urea Nitrogen) 9 mg/dL (8.4-25.7); Calc. Creatinine Clearance 129 mL/min (70-130); Calcium 9.4 mg/dL (7.8-10.44); Carbon Dioxide 27 mmol/L (23-31); Chloride 95 mmol/L (98-107); Glucose 76 mg/dL (83-110); Potassium 3.6 mmol/L (3.5-5.1); Sodium 131 mmol/L (136-145)
[2020-11-16] MEDS: Lorazepam 1 MG TAB PO SCH ×4 (01:46→19:56)
[2020-11-16 05:14] LABS: Albumin 3.6 g/dL (3.4-4.8); Anion Gap 10 mmol/L (10-20); BUN (Urea Nitrogen) 9 mg/dL (8.4-25.7); BUN/Creatinine Ratio 15.25; Calc. Creatinine Clearance 58 mL/min (70-130); Calcium 8.9 mg/dL (7.8-10.44); Carbon Dioxide 26 mmol/L (23-31); Chloride 98 mmol/L (98-107); Glucose 91 mg/dL (83-110); Phosphorus 3.7 mg/dL (2.3-4.7); Potassium 3.4 mmol/L (3.5-5.1); Sodium 131 mmol/L (136-145)
[2020-11-16] MEDS: Levothyroxine Sodium 100 MCG TAB PO SCH (05:35)
[2020-11-16] MEDS ORDERED: Levothyroxine Sodium 125 MCG TAB PO SCH (06:00)
[2020-11-16] MEDS: Mometasone Furoate 120 PUFF 220 MCG INH SCH (07:15)
[2020-11-16] MEDS: Spironolactone 100 MG TAB PO SCH (09:15)
[2020-11-16] MEDS: Ferrous Sulfate 325 MG TAB PO SCH ×2 (09:15→17:12)
[2020-11-16] MEDS: Folic Acid 1 MG TAB PO SCH (09:16)
[2020-11-16] MEDS: Amlodipine 10 MG TAB PO SCH (09:16)
[2020-11-16] MEDS: Allopurinol 300 MG TAB PO SCH (09:16)
[2020-11-16] MEDS: Multivit, Therapeutic 1 TAB PO SCH (09:17)
[2020-11-16] MEDS: Multivitamin W/ Minerals 1 TAB PO SCH (09:17)
[2020-11-16] MEDS: Losartan 25 MG TAB PO SCH (09:17)
[2020-11-16] MEDS: levETIRAcetam 500 mg/5 ml Oral Solution PO SCH ×2 (09:17→20:19)
[2020-11-16] MEDS: PARoxetine 20 MG TAB PO SCH (09:18)
[2020-11-16] MEDS: Sodium Bicarbonate Tab 325 MG TAB PO SCH ×3 (09:18→20:20)
[2020-11-16] MEDS: Sodium Chloride 1 GM TAB PO SCH ×2 (09:18→20:18)
[2020-11-16] MEDS: Torsemide 10 MG TAB PO SCH (09:18)
[2020-11-16] MEDS: Aspirin 81 mg Enteric Coated Tablet PO SCH (20:21)
[2020-11-16] MEDS: Clopidogrel Bisulfate 75 MG TAB PO SCH (20:21)
[2020-11-16] MEDS: Tamsulosin HCl 0.4 MG CAP PO SCH (20:21)
[2020-11-17 06:02] LABS: Albumin 4.2 g/dL (3.4-4.8); Anion Gap 16 mmol/L (10-20); BUN (Urea Nitrogen) 9 mg/dL (8.4-25.7); BUN/Creatinine Ratio 13.85; Calc. Creatinine Clearance 52 mL/min (70-130); Calcium 9.3 mg/dL (7.8-10.44); Carbon Dioxide 24 mmol/L (23-31); Chloride 97 mmol/L (98-107); Glucose 83 mg/dL (83-110); Magnesium 1.5 mg/dL (1.6-2.6); Phosphorus 3.4 mg/dL (2.3-4.7); Potassium 3.6 mmol/L (3.5-5.1); Sodium 133 mmol/L (136-145)
[2020-11-17] MEDS: Levothyroxine Sodium 100 MCG TAB PO SCH (06:26)
[2020-11-17] MEDS ORDERED: Magnesium Sulfate 4 GM in Sodium Chloride 0.9% 250 ML 250 ML IVPB SCH ×2 (07:15→08:00)
[2020-11-17] MEDS: Sodium Bicarbonate Tab 325 MG TAB PO SCH ×3 (08:56→21:14)
[2020-11-17] MEDS: Losartan 25 MG TAB PO SCH (08:56)
[2020-11-17] MEDS: PARoxetine 20 MG TAB PO SCH (08:57)
[2020-11-17] MEDS: Amlodipine 10 MG TAB PO SCH (08:58)
[2020-11-17] MEDS: Folic Acid 1 MG TAB PO SCH (08:58)
[2020-11-17] MEDS: Spironolactone 100 MG TAB PO SCH (08:58)
[2020-11-17] MEDS: Allopurinol 300 MG TAB PO SCH (08:58)
[2020-11-17] MEDS: Multivit, Therapeutic 1 TAB PO SCH (08:59)
[2020-11-17] MEDS: Ferrous Sulfate 325 MG TAB PO SCH ×2 (08:59→16:18)
[2020-11-17] MEDS: levETIRAcetam 500 mg/5 ml Oral Solution PO SCH ×2 (08:59→21:14)
[2020-11-17] MEDS: Torsemide 10 MG TAB PO SCH (09:00)
[2020-11-17] MEDS: Multivitamin W/ Minerals 1 TAB PO SCH (09:00)
[2020-11-17 09:14] LABS: #Eosinphils 0.4 thou/uL (0.0-0.7); #Monocytes 0.7 thou/uL (0.11-0.59); %Basophils 0.5 % (0.0-1.0); %Eosinophils 6.9 % (0.0-10.0); %Lymphocytes 16.7 % (21.0-51.0); %Monocytes 11.1 % (0.0-10.0); %Neutrophils 64.9 % (42.0-75.0); Hemoglobin 12.5 g/dL (14.0-18.0); Mean Corpuscular HGB CONC 34.4 g/dL (32.0-36.0); Mean Corpuscular Hemoglobin 37.7 pg (27.0-31.0); Mean Platelet Volume 6.8 fL (7.4-10.4); Platelet Count 290 thou/uL (130-400); Red Blood Cell (RBC) Count 3.31 mill/uL (4.70-6.10); White Blood Cell (WBC) Count 6.2 thou/uL (4.8-10.8)
[2020-11-17] MEDS: Sodium Chloride 1 GM TAB PO SCH ×3 (09:31→21:16)
[2020-11-17] MEDS: Mometasone Furoate 120 PUFF 220 MCG INH SCH (14:25)
[2020-11-17] MEDS ORDERED: Torsemide 10 MG TAB PO SCH (15:00)
[2020-11-17] MEDS: Tamsulosin HCl 0.4 MG CAP PO SCH (21:13)
[2020-11-17] MEDS: Clopidogrel Bisulfate 75 MG TAB PO SCH (21:13)
[2020-11-17] MEDS: Aspirin 81 mg Enteric Coated Tablet PO SCH (21:13)
[2020-11-18] MEDS: Levothyroxine Sodium 100 MCG TAB PO SCH (05:12)
[2020-11-18 05:47] LABS: Albumin 3.6 g/dL (3.4-4.8); Anion Gap 12 mmol/L (10-20); BUN (Urea Nitrogen) 11 mg/dL (8.4-25.7); BUN/Creatinine Ratio 16.67; Calc. Creatinine Clearance 123 mL/min (70-130); Calcium 8.8 mg/dL (7.8-10.44); Carbon Dioxide 28 mmol/L (23-31); Chloride 97 mmol/L (98-107); Glucose 89 mg/dL (83-110); Magnesium 1.7 mg/dL (1.6-2.6); Phosphorus 3.8 mg/dL (2.3-4.7); Potassium 3.3 mmol/L (3.5-5.1); Sodium 134 mmol/L (136-145)
[2020-11-18] MEDS ORDERED: Potassium Chloride 20 MEQ TAB PO SCH (07:30)
[2020-11-18] MEDS ORDERED: Torsemide 20 MG TAB PO SCH (09:00)
[2020-11-18] MEDS ORDERED: Magnesium Oxide 400 MG TAB PO SCH (09:00)
[2020-11-18 09:01] VITALS: BP 161/73; TEMP 98.2
[2020-11-18] MEDS: levETIRAcetam 500 mg/5 ml Oral Solution PO SCH (10:09)
[2020-11-18] MEDS: Losartan 25 MG TAB PO SCH (10:10)
[2020-11-18] MEDS: Sodium Bicarbonate Tab 325 MG TAB PO SCH (10:11)
[2020-11-18] MEDS: PARoxetine 20 MG TAB PO SCH (10:11)
[2020-11-18] MEDS: Allopurinol 300 MG TAB PO SCH (10:11)
[2020-11-18] MEDS: Mometasone Furoate 120 PUFF 220 MCG INH SCH ×3 (10:11→10:14)
[2020-11-18] MEDS: Spironolactone 100 MG TAB PO SCH (10:12)
[2020-11-18] MEDS: Amlodipine 10 MG TAB PO SCH (10:12)
[2020-11-18] MEDS: Folic Acid 1 MG TAB PO SCH (10:13)
[2020-11-18] MEDS: Ferrous Sulfate 325 MG TAB PO SCH (10:13)
[2020-11-18] MEDS: Multivitamin W/ Minerals 1 TAB PO SCH (10:14)
[2020-11-18] MEDS: Sodium Chloride 1 GM TAB PO SCH (10:14)
[2020-11-18] MEDS: Multivit, Therapeutic 1 TAB PO SCH (10:14)
== END 2020-11-18 11:38 | disposition home or self-care (01) | DRG 643 ==
LOC: ERS 13:37 → 2NO 16:10 → OBSVTOIN 11-15 09:48
PROVIDERS: ADMIT Internal Medicine; ATTEND Family Medicine
DX: E22.2 Syndrome of inappropriate secretion of antidiuretic hormone (principal); J96.21 Acute and chronic respiratory failure with hypoxia; I50.33 Acute on chronic diastolic (congestive) heart failure; J44.1 Chronic obstructive pulmonary disease with (acute) exacerbation; Z20.822 Contact with and (suspected) exposure to COVID-19; I11.0 Hypertensive heart disease with heart failure; I25.10 Atherosclerotic heart disease of native coronary artery without angina pectoris; F10.10 Alcohol abuse, uncomplicated; E87.5 Hyperkalemia; E83.42 Hypomagnesemia; D53.9 Nutritional anemia, unspecified; E78.5 Hyperlipidemia, unspecified; E03.9 Hypothyroidism, unspecified; G47.33 Obstructive sleep apnea (adult) (pediatric); G40.909 Epilepsy, unspecified, not intractable, without status epilepticus; R91.1 Solitary pulmonary nodule; I73.9 Peripheral vascular disease, unspecified; F17.290 Nicotine dependence, other tobacco product, uncomplicated; M10.9 Gout, unspecified; Z88.0 Allergy status to penicillin; Z88.5 Allergy status to narcotic agent; Z86.73 Personal history of transient ischemic attack (TIA), and cerebral infarction without residual deficits; Z79.890 Hormone replacement therapy; Z79.82 Long term (current) use of aspirin; Z79.899 Other long term (current) drug therapy
CPT/HCPCS: 36415; 70450; 71045; 76705; 80048; 80053; 80069; 81001; 81003; 81015; 82570; 82607; 82746; 83735; 83880; 83930; 83935; 84100; 84300; 84439; 84443; 85025; 85730; 93005; 94640; 96374; 96375; G0378; J1815; J3475; J7050; J7611; U0003; U0005

== ENCOUNTER 2021-02-22 19:00 | Emergency (ER) | payer MEDICARE ==
[2021-02-22] MEDS ORDERED: Fentanyl 100 MCG/2 ML VIAL ONE (20:03)
[2021-02-22] MEDS ORDERED: Ondansetron PF 4 MG/2 ML Vial ONE (20:03)
[2021-02-22 20:55] LABS: Hemoglobin 12.4 g/dL (14.0-18.0); Mean Platelet Volume 7.3 fL (7.4-10.4); Platelet Count 261 thou/uL (130-400); RBC Distribution Width 13.5 % (11.5-14.5); Red Blood Cell (RBC) Count 3.46 mill/uL (4.70-6.10); White Blood Cell (WBC) Count 11.9 thou/uL (4.8-10.8)
[2021-02-22 21:10] LABS: ALT (SGPT) 169 U/L (8-55); AST (SGOT) 145 U/L (5-34); Albumin 3.2 g/dL (3.4-4.8); Alkaline Phosphatase 471 U/L (40-110); Anion Gap 17 mmol/L (10-20); BUN (Urea Nitrogen) 26 mg/dL (8.4-25.7); Bilirubin, Total 0.9 mg/dL (0.2-1.2); Calc. Creatinine Clearance 0 mL/min (70-130); Calcium 9.1 mg/dL (7.8-10.44); Carbon Dioxide 22 mmol/L (23-31); Chloride 96 mmol/L (98-107); Glucose 78 mg/dL (83-110); Potassium 3.3 mmol/L (3.5-5.1); Protein, Total 6.2 g/dL (5.8-8.1); Sodium 132 mmol/L (136-145)
[2021-02-22 21:21] LABS: #Eosinphils 0.1 thou/uL (0.0-0.7); #Monocytes 0.9 thou/uL (0.11-0.59); #Neutrophils 9.9 thou/uL (1.40-6.50); %Basophils 0.2 % (0.0-1.0); %Eosinophils 0.6 % (0.0-10.0); %Lymphocytes 8.4 % (21.0-51.0); %Monocytes 7.5 % (0.0-10.0); %Neutrophils 83.3 % (42.0-75.0); MDiff Complete? YES; Macrocytosis SLIGHT = 6-15 cells (100X) (0-5/hpf)
[2021-02-22] MEDS ORDERED: Ketorolac Tromethamine 30 MG/ML VIAL ONE ×2 (22:26→22:28)
== END 2021-02-22 23:11 | disposition home or self-care (01) ==
LOC: ERS 19:00
DX: K74.60 Unspecified cirrhosis of liver (principal); R16.0 Hepatomegaly, not elsewhere classified; I10 Essential (primary) hypertension; J44.9 Chronic obstructive pulmonary disease, unspecified; M10.9 Gout, unspecified; Z87.891 Personal history of nicotine dependence; Z79.82 Long term (current) use of aspirin; Z79.02 Long term (current) use of antithrombotics/antiplatelets
CPT/HCPCS: 71045; 74177; 80053; 85025; 96374; 96375; J1885; J2405; J3010; Q9967